=== PATIENT | female | born 1965 | race Two or more races ===

== ENCOUNTER 2024-11-03 11:25 | Outpatient (REF) | payer OTHER, SELFPAY ==
[2024-11-03 12:22] LABS: Basophils Percent Auto 0.2 % (0-2); Eosinophils Absolute Auto 0.1 X10*3/uL (0.0-0.4); Eosinophils Percent Auto 0.5 % (0-4); Imm Gran Abs Auto 0.19 X10*3/uL (0.00-0.03); Imm Gran Pct Auto 1.1 % (0.0-0.4); Lymphocytes Absolute Auto 5.8 X10*3/uL (1.2-4.9); MANUAL DIFF FLAG SCAN; Mean Corpuscular HGB Conc 32.5 g/dl (31.0-35.0); Mean Platelet Volume 9.1 fL (9.4-12.3); Monocytes Absolute Auto 0.8 X10*3/uL (0.1-1.2); Monocytes Percent Auto 4.7 % (2-11); Neutrophils Absolute Auto 10.1 x10*3/uL (2.0-8.3); Neutrophils Percent Auto 59.5 % (45-73); Platelet Count 327 X10*3/uL (160-400); Red Blood Count 4.82 X10*6/uL (4.20-5.50); Red Cell Distribution Width 15.7 % (11.0-16.0); SCAN SMEAR FLAG 1; White Blood Count 17.1 X10*3/uL (4.8-10.8)
[2024-11-03 12:31] LABS: Alanine Aminotransferase 53 U/L (0-31); Aspartate Amino Transferase 29 U/L (5-31); C Reactive Protein 1.72 mg/dL (< or = 0.50); Estimated Glomerular Filt Rate > 60; Rheumatoid Factor < 13.0 IU/mL (<15.0)
[2024-11-03 12:51] LABS: HBc Num1 0.06 S/CO (0.00-0.79); HBsAGNum1 0.42 S/CO (0.00-0.99); Hepatitis B Core Antibody Nonreactive (Nonreactive); Hepatitis B Surface Antigen Negative (Negative); ~HepC Num1 0.12 S/CO (0.00-0.79); ~Hepatitis B Surface Antibody NONREACTIVE (Nonreactive); ~Hepatitis C Antibody Nonreactive (Nonreactive)
[2024-11-03 12:55] LABS: SLIDE REVIEW VERIFIED
[2024-11-03 13:05] LABS: Erythrocyte Sedimentation Rate 14 MM/HR (0-20)
[2024-11-06 18:59] LABS: Antibody to SS-A Antigen <1.0 NEG AI (<1.0 NEG); Antibody to SS-B Antigen <1.0 NEG AI (<1.0 NEG); Complement C3 175 mg/dL (83-193)
[2024-11-08 16:09] LABS: TS Negative Control PASSED; TS Panel A 0; TS Panel B 0; TS Positive Control PASSED; TSpotTB NEGATIVE
== END 2024-11-03 11:26 | disposition home or self-care (01) ==
LOC: HO.LAB 11:25
PROVIDERS: Visit Provider Internal Medicine Rheumatology
DX: M35.00 Sjogren syndrome, unspecified (principal)
CPT/HCPCS: 36415; 82565; 84450; 84460; 85025; 85652; 86140; 86160; 86235; 86431; 86481; 86704; 86706; 86803; 87340

== ENCOUNTER 2024-12-28 13:32 | Outpatient (AMB) | payer OTHER, SELFPAY ==
[2024-12-28 13:37] VITALS: BP 120/66; PULSE 88; O2SAT 98; BMI 31.4
--- NOTE | 2024-12-28 13:37 | A.OFFVIS_ITS ---
Vital Signs 12/28/24 13:37 Height 5 ft 1 in Weight 166 lb BMI 31.4 BP 120/66 Blood Pressure Location Lt brachial Position Sitting Pulse 88 Pulse Source Pulse Oximeter Pulse Oximetry (%) 98 Oxygen Delivery Method Room Air Intake Visit Reasons: ss Intake Note: Patient presents for follow up on Sjogren's syndrome. She last saw Dr. Grove on 06/21/24 at the [facility]. Janitorial Supervisor Required: Yes Janitorial Supervisor Services: Janitorial Supervisor Present Janitorial Supervisor Name: maeve [id number] Allergies morphine Adverse Reaction (Mild, Verified 12/28/24 13:41) Hypotension HPI HPI ss: Details: She had two viral illness in Oct 2024. She takes Plaquenil 200mg qd. She had issues She continues to have knee pain and weakness in lower extremities MS 20 minutes. She continues to have pain in her hands. Review of Systems Const All systems reviewed & are unremarkable except as noted in HPI and below Physical Exam Vital Signs: Last Vital Signs Pulse 88 12/28/24 13:37 BP 120/66 12/28/24 13:37 Pulse Ox 98 12/28/24 13:37 Oxygen Delivery Method Room Air 12/28/24 13:37 BMI result Body Mass Index 31.4 Const Other: General: Comfortable CVS: RRR Respiratory: clear to auscultation bilaterally. Good respiratory effort Skin: No lesions seen MSK: Tender to palpate MCPs, PIPs, wrists, elbows, shoulders. Weak patient office rep strength bilateral. Shoulder abduction 120 degrees with limited full internal rotation and external rotation. Knee flexion is 90 degrees bilateral. Limited external rotation of bilateral hips. No synovitis present. 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 Biopsy-proven Sjogren's syndrome (minor salivary gland biopsy 01/2018) with elevated inflammatory markers, seronegative (MAUREEN, SSA/SSB, rheumatoid factor). Dry mouth improves with Biotene. Hydroxychloroquine started for inflammatory arthritis b ut it was discontinued after a few days due to worsening depression anxiety. She has tolerated Plaquenil 200 mg daily. Her polyarthralgias are uncontrolled. She also has weakness in her hands. She had labs done in 11/17/2024 which revealed elevated white cell count and mild elevation in ALT. She had a viral illness, requiring admission in October likely contributing to leukocytosis and transaminitis. She was discharged on higher dose of gabapentin, which has controlled her pain from fibromyalgia. Code(s): M35.00 - Sjogren syndrome, unspecified Category: Medical Qualifiers: Sjogren organ or system involvement: keratoconjunctivitis Qualified Code(s): M35.01 - Sjogren syndrome with keratoconjunctivitis Plan: Increase Plaquenil to 400 mg daily. Brand only. We will process PA. Labs for disease and drug monitoring reviewed from 11/17/2024 Occupational therapy ordered to increase hand strength Return to clinic in 3 months (2) Leukocytosis: Comment: likely in setting of viral illness in October 2024 Code(s): D72.829 - Elevated white blood cell count, unspecified Category: Medical Qualifiers: Leukocytosis type: unspecified Qualified Code(s): D72.829 - Elevated white blood cell count, unspecified Plan: Repeat CBC (3) Transaminitis: Comment: Possibly related to viral illness in 11/17/2024 Code(s): R74.01 - Elevation of levels of liver transaminase levels Category: Medical Plan: Repeat LFTs (4) Hand weakness: Code(s): R29.898 - Other symptoms and signs involving the musculoskeletal system Category: Medical Plan: OT ordered. Requisition given to patient as patient prefers to go to occupational therapy and [place]. (5) Knee pain, bilateral: Comment: Chronic with lower extremity weakness. She had x-rays done at the [facility]. Code(s): M25.561 - Pain in right knee; M25.562 - Pain in left knee Category: Medical Qualifiers: Chronicity: chronic Qualified Code(s): M25.561 - Pain in right knee; M25.562 - Pain in left knee; G89.29 - Other chronic pain Plan: Requesting bilateral knee x-ray reports from [facility] Patient agreed to start PT for lower extremity strengthening. She would like to go to PT locally in [place]. Requisition given to patient. (6) Fibromyalgia syndrome: Comment: Improve pain on higher dose of gabapentin, which was prescribed after she was discharged from hospitalization in 11/17/2024 Code(s): M79.7 - Fibromyalgia Category: Medical Plan: Continue gabapentin 800 mg 3 times a day Orders: Orders PT Evaluation and Treatment Today M25.561 - Pain in right knee, M25.562 - Pain in left knee OT Evaluation and Treatment Today R29.898 - Other symptoms and signs involving the musculoskeletal system Protein Electrophoresis, Serum Today M35.01 - Sjogren syndrome with keratoconjunctivitis Medications: New Plaquenil (hydroxychloroquine) Dispense brand only and 90 day supply 400 mg (2 x 200 mg) PO DAILY 180 tabs 3RF NS gabapentin Dispense 90 day supply 800 mg PO TID 90 days 270 tabs 3RF Coding Level of Care Code Est Pt Level 4 (05523) Complex EM visit Add On G2211 Diagnoses Sjogren's syndrome with keratoconjunctivitis sicca M35.01 Sjogren organ or system involvement: keratoconjunctivitis Leukocytosis, unspecified type D72.829 Leukocytosis type: unspecified Transaminitis R74.01 Hand weakness R29.898 Chronic pain of both knees M25.561; M25.562; G89.29 Chronicity: chronic Fibromyalgia syndrome M79.7
== END 2024-12-28 14:26 | disposition home or self-care (01) ==
PROVIDERS: PCP Nurse Practitioner Family; Visit Provider Internal Medicine Rheumatology
DX: M35.01 Sjogren syndrome with keratoconjunctivitis (principal); D72.829 Elevated white blood cell count, unspecified; R74.01 Elevation of levels of liver transaminase levels; R29.898 Other symptoms and signs involving the musculoskeletal system; M25.561 Pain in right knee; M25.562 Pain in left knee; G89.29 Other chronic pain; M79.7 Fibromyalgia
CPT/HCPCS: 99214; G2211

== ENCOUNTER 2024-12-28 13:32 | Outpatient (REF) | payer OTHER, SELFPAY ==
[2024-12-28 17:36] LABS: MANUAL DIFF FLAG NO
[2024-12-28 17:47] LABS: Basophils Percent Auto 0.4 % (0-2); Eosinophils Absolute Auto 0.2 X10*3/uL (0.0-0.4); Eosinophils Percent Auto 1.9 % (0-4); Hematocrit 39.8 % (37.0-47.0); Hemoglobin 12.7 g/dl (12.0-16.0); Imm Gran Abs Auto 0.03 X10*3/uL (0.00-0.03); Imm Gran Pct Auto 0.3 % (0.0-0.4); Lymphocytes Absolute Auto 2.8 X10*3/uL (1.2-4.9); Lymphocytes Percent Auto 31.7 % (20-40); Mean Corpuscular HGB Conc 31.9 g/dl (31.0-35.0); Mean Corpuscular Volume 84.5 fL (80.0-98.0); Mean Platelet Volume 9.5 fL (9.4-12.3); Monocytes Absolute Auto 0.6 X10*3/uL (0.1-1.2); Monocytes Percent Auto 6.8 % (2-11); Neutrophils Absolute Auto 5.2 x10*3/uL (2.0-8.3); Neutrophils Percent Auto 58.9 % (45-73); Platelet Count 296 X10*3/uL (160-400); Red Blood Count 4.71 X10*6/uL (4.20-5.50); Red Cell Distribution Width 15.2 % (11.0-16.0); White Blood Count 8.9 X10*3/uL (4.8-10.8)
[2024-12-28 17:57] LABS: Alanine Aminotransferase 51 U/L (0-31); Aspartate Amino Transferase 50 U/L (5-31)
--- OUTSIDE RECORDS SUMMARY | 2024-12-28 18:27 | XMS_ITS | Continuity of Care Document ---
Author Organization [facility] Address [address] [place] [id number]- Care Team Providers Care Psychiatric Arnp Name Role Phone [place] Greta BEAULIEU Primary Care Physician [phone] [place] [facility] [place]): [place]29/24 [facility] [address] [place] [id number] Encounter Type: Triage Allergies, Adverse Reactions, Alerts Substance Criticality Severity Reaction Reaction Severity Status morphine SOB - Shortness of breath Active Immunizations Given and Recorded Vaccine Date Status Refusal Reason pneumococcal 20-valent conjugate vaccine 1 10/11/24 Given influenza virus vaccine, inactivated 09/26/24 Give n influenza virus vaccine, inactivated 11/01/23 Give n influenza virus vaccine, inactivated 10/28/22 Give n influenza virus vaccine, inactivated 09/04/20 Cisco rded influenza virus vaccine, inactivated 09/14/19 Give n influenza virus vaccine, inactivated 09/21/18 Give n influenza virus vaccine, inactivated 11/01/17 Give n influenza virus vaccine, inactivated 09/09/16 Give n influenza virus vaccine, inactivated 2 09/11/15 Gi tash influenza virus vaccine, inactivated 3 10/08/14 Gi tash influenza virus vaccine, inactivated 08/09/13 Give n influenza virus vaccine, inactivated 4 08/12/12 Gi tash influenza virus vaccine, inactivated 5 10/16/11 Gi tash influenza virus vaccine, inactivated 6 08/27/10 Gi tash influenza virus vaccine, inactivated 7 08/21/09 Gi tash SARS-CoV-2 (COVID-19) mRNA BNT-162b2 vac 12/21/21 Recorded SARS-CoV-2 (COVID-19) mRNA BNT-162b2 vac 05/12/21 Recorded SARS-CoV-2 (COVID-19) mRNA BNT-162b2 vac 04/15/21 Recorded Hepatitis B Vaccine (old term) 8 08/13/10 Given Hepatitis B Vaccine (old term) 9 11/21/08 Given Hepatitis B Vaccine (old term) 10 11/21/08 Given influ virus vac, H1N1, inactive(oldterm) 11 10/23/09 Given Pneumococcal Poly (PPV23) (oldterm) 12 12/25/08 Gi tash Tet/Diphth/Acel, Pertussis (oldterm) 13 12/25/08 G iven Influenza Virus Vaccine (oldterm) 14 09/14/08 Give n 1Result Comment: MFD: CBA PHARMA 2Result Comment: [09/11/2015] VIS in Venezuelan given With blogs manager Ani 3Result Comment: [10/08/2014] fluarix trivalent 14-15 4Admin Note: VIS 7- 5Admin Note: CDC info given to patient 6Admin Note: vis given 07/08/10 7Admin Note: VIS GIVEN-DATED 06/21/08 8Admin Note: #3 in series 9Admin Note: #2 10Admin Note: No documentation patient states received first vaccine 10/05/08 11Admin Note: VIS GIVEN VIS DATE08/30/09 12Admin Note: VIS given 13Admin Note: VIS given 14Admin Note: VIS given Medications Aerochamber See Instructions, # 1 each, Maintenance, use with both inhalers, 09/09/20 10:12:00 AM EDT, Supply, 156, cm, 09/09/20 9:59:00 EDT, Height, 76.6, kg, 08/23/19 4:38:00 EDT, Dry Weight Start Date: 10/12/20 Status: Ordered Quantity: 1.0 Unit: each Repeat number: 1 albuterol 0.083% inhalation solution 3 mL = 2.5 mg, Inhalation, Every 6 hours, PRN for wheezing, # 30 each, 0 Refills, Maintenance, 11/15/24 8:30:00 AM EST, Solution, [facility], Partial fill upon patient request if the prescription is for a schedule II opioid drug., 155, cm, 11/15/24 7:26:00 EST, Height, 73, kg, 11/14/24 10:43:00 EST, Dry Weight Start Date: 11/15/24 Stop Date: 12/15/24 Status: Ordered Quantity: 30.0 Unit: each Repeat number: 1 albuterol CFC free 90 mcg/inh inhalation aerosol 2, puffs, Inhalation, 4 times a day, PRN, # 1 each, Refills 11, Tot. Refills 11, Maintenance, 10/12/24 2:10:00 PM EST, Aerosol, Route to Pharmacy Electronically, [id number],[facility]/pharm[facility] #[id number], 155, cm, 10/12/24 13:41:00 EST, Height, 79, kg, 09/20/24 19:29:00 EDT, Dry Weight Start Date: 10/12/24 Status: Ordered Quantity: 1.0 Unit: each Repeat number: 12 Alcohol Pads See Instructions, # 1 each, Refills 1, Tot. Refills 1, Maintenance, Box of alcohol wipes, Dx DM, oninsulin TID, 11/09/23 2:41:00 PM EST, Supply, 155, cm, 11/09/23 14:12:00 EST, Height, 74.4, kg, 11/01/23 4:38:00 EST, Dry Weight Start Date: 11/09/23 Status: Ordered Quantity: 1.0 Unit: each Repeat number: 2 Artificial Tears 1.4% 1 drops, Eyes, Both, 2 times a day, 0 Refills, Maintenance, 03/20/22 8:25:00 PM EDT, Partial fill upon patient request if the prescription is for a schedule II opioid drug. Start Date: 03/20/22 Status: Ordered Repeat number: 1 azelastine 137 mcg/inh (0.1%) nasal spray INHALE 2 SPRAYS EACH NOSTRIL TWICE DAILY Start Date: 05/15/23 Status: Ordered Repeat number: 1 budesonide 0.5 mg/2 mL inhalation suspension See Instructions, TAKE 2 ML BY NEBULIZATION DOS ARIANAELIZABETH AL KATE, # 360 mL, Refills 0, Maintenance, 09/22/24 9:32:00 AM EDT, Instructions Replace Required Details, Route to Pharmacy Electronically, [id number], [id number], 155, cm, 09/20/24 19:29:00 EDT, Height, 79, kg, 09/20/24 19:29:00 EDT, Dry Weight Start Date: 09/22/24 Status: Ordered Quantity: 360.0 Unit: mL Repeat number: 1 busPIRone 10 mg oral tablet 10 mg, 1, tablet, By Mouth, 2 times a day, Refills 0, Maintenance, 03/20/22 8:26:00 PM EDT, Partial fill upon patient request if the prescription is for a schedule II opioid drug. Start Date: 03/20/22 Status: Ordered Repeat number: 1 Calcium 600 +D oral tablet See Instructions, TAKE 1 TABLET BY MOUTH 2 TIMES A DAY FOR 90 DAYS WITH MEALS, # 180 tablet, 4 Refills, Maintenance, 01/24/24 5:18:00 PM EST, [facility]/pharmacy #[id number], 90, TAKE 1 TABLET BY MOUTH 2 TIMES A DAY FOR 90 DAYS WITH MEALS, 165, cm, 01/24/24 15:51:00 EST, Height, 73.3, kg, 01/23/24 18:29:00 EST, Dry Weight Start Date: 01/24/24 Status: Ordered Quantity: 180.0 Unit: tablet Repeat number: 5 capsaicin 0.025% topical cream 1 application, Topically, 2 times a day, # 60 Gm, 3 Refills, Maintenance, 08/10/24 11:46:00 AM EDT, Cream, [facility]/pharmacy #[id number], Partial fill upon patient request if the prescription is for a schedule II opioid drug., 1 application Topically 2 times a day, 155, cm, 08/10/24 11:10:00 EDT, Height, 82, kg, 07/31/24 23:23:00 EDT, Dry Weight Start Date: 08/10/24 Status: Ordered Quantity: 60.0 Unit: g Repeat number: 4 Indication: Spondylolysis, cervical region clonazePAM 0.5 mg oral tablet 1 tablet = 0.5 mg, By Mouth, Daily, PRN Anxiety, 0 Refills, Maintenance, 06/09/18 3:30:12 PM EDT, Tablet Start Date: 06/09/18 Status: Ordered Repeat number: 1 conjugated estrogens topical 0.625 mg/gm cream with applicator = 1 Gm, Vaginally, Daily before dinner, # 30 Gm, 5 Refills, Maintenance, 05/19/24 5:16:00 PM EDT, [facility]/pharm[facility] #[id number], Partial fill upon patient request if the prescription is for a schedule II opioid drug., 1 Gm Vaginally Daily before dinner, 157, cm, 05/16/24 16:05:00 EDT, Height, 77, kg, 03/25/24 19:43:00 EDT, Dry Weight Start Date: 05/19/24 Status: Ordered Quantity: 30.0 Unit: g Repeat number: 6 Indication: Other specified menopausal and perimenopausal disorders CPAP Equipment See Instructions, # 1 each, Refills 11, Tot. Refills 11, Maintenance, mask and supplies X 12 months; A4604 Heated Tubing/Climate line (1 X 3 mo) or A7037 Tubing (1 X 3 mo) ; A7038 (2 X mo) or A7039 (1 X 6 mo) Filters ; A7046 (1 X 6 mo) Humidifier Chamber ; A7035 Headgear ; A7027, A7030, A7031, A7032, A7033, A7034 Nasal, Full or Pillow Mask (X2/mo) and parts ; Heated Humidifier E0562 Dx G47.33 ; compliant with PAP use and continued use is required for medical benefit, 11/13/19 4:44:00 PM EST, Compound, 156, cm, 10/20/19 13:53:28 EST, Height, 76.6, kg, 08/23/19 4:38:11 EDT, Dry Weight Start Date: 11/13/19 Status: Ordered Quantity: 1.0 Unit: each Repeat number: 12 dicyclomine 10 mg oral capsule See Instructions, TOME 1 CAPSULA POR VIA ORAL CUATRO VECES AL KATE CUANDO SEA NECESARIO FOR STOMACH PAIN, # 40 capsule, 1 Refills, 10/11/24 2:16:00 PM EST, [id number], 155, cm, 10/11/24 13:44:00 EST, Height, 79, kg, 09/20/24 19:29:00 EDT, Dry Weight Start Date: 10/11/24 Status: Ordered Quantity: 40.0 Unit: capsule Repeat number: 2 Freestyle Lite Lancets See Instructions, # 100 each, Refills 11, Tot. Refills 11, Maintenance, used to check BS TID, on insulin Dx: E11.9, 03/07/24 1:22:00 PM EDT, Compound, 159, cm, 03/03/24 8:08:00 EDT, Height, 75, kg, 03/03/24 8:08:00 EDT, Dry Weight Start Date: 03/07/24 Stop Date: 03/02/25 Status: Ordered Quantity: 100.0 Unit: each Repeat number: 12 Freestyle Lite Monitor See Instructions, # 1 each, Refills 0, Tot. Refills 0, Maintenance, use to test bs QD, dx Diabetes E11.9, 11/13/21 10:39:00 AM EST, Compound, 155, cm, 11/12/21 14:02:00 EST, Height, 77.6, kg, 11/12/21 14:02:00 EST, Dry Weight Start Date: 11/13/21 Status: Ordered Quantity: 1.0 Unit: each Repeat number: 1 FREESTYLE LITE TEST STRIP FREESTYLE LITE TEST STRIP, See Instructions, # 50 Unknown, 11 Refills, Maintenance, USE TO CHECK BLOOD SUGAR EVERY DAY, 02/01/23 11:40:00 AM EST, 155, cm, 01/28/23 10:01:00 EST, Height, 76, kg, 04/28/22 20:47:00 EDT, Dry Weight Start Date: 02/01/23 Status: Ordered Quantity: 50.0 Unit: Unknown Repeat number: 1 Freestyle Lite Test Strips See Instructions, # 100 each, Refills 11, Tot. Refills 11, Maintenance, used to check BS TID, on insulin Dx: E11.9, 03/07/24 1:21:00 PM EDT, Compound, 159, cm, 03/03/24 8:08:00 EDT, Height, 75, kg, 03/03/24 8:08:00 EDT, Dry Weight Start Date: 03/07/24 Stop Date: 03/02/25 Status: Ordered Quantity: 100.0 Unit: each Repeat number: 12 gabapentin 800 mg oral tablet 1 tablet = 800 mg, By Mouth, 3 times a day, # 270 tablet, 3 Refills, Maintenance, 08/10/24 11:44:00 AM EDT, Tablet, [facility] #[id number], Partial fill upon patient request if the prescription is for a schedule II opioid drug., 155, cm, 08/10/24 11:10:00 EDT, Height, 82, kg, 07/31/24 23:23:00 EDT, Dry Weight Start Date: 08/10/24 Stop Date: 08/05/25 Status: Ordered Quantity: 270.0 Unit: tablet Repeat number: 4 GaviLAX oral powder for reconstitution See Instructions, DISOLVER 17 GRAMOS EN AGUA, LUEGO ETELVINA POR VIA ORAL TODOS [place] LEE CUANDO SEA NECESARIO PARA LA CONSTIPATION, # 238 Gm, 11 Refills, Maintenance, 10/11/24 2:18:00 PM EST, [facility] #[id number], 30, DISOLVER 17 GRAMOS EN AGUA, LUEGO ETELVINA POR VIA ORAL TODOS [place] L[place] CUANDO SEA NECESARIO PARA LA CONSTIPATION, 155, cm, 10/11/24 13:44:00 EST, Height, 79, kg, 09/20/24 19:29:00 EDT, Dry Weight Start Date: 10/11/24 Status: Ordered Quantity: 238.0 Unit: g Repeat number: 12 hydrOXYzine hydrochloride 25 mg oral tablet See Instructions, PRN Itching, Take 1 (25mg) to 2 (50mg) tablets by mouth daily at bedtime as needed, 0 Refills, Maintenance, 03/20/22 8:27:00 PM EDT, Partial fill upon patient request if the prescription is for a schedule II opioid drug. Start Date: 03/20/22 Status: Ordered Repeat number: 1 Incontinence Pads Incontinence Pads, See Instructions, # 60 each, Refills 11, Tot. Refills 11, Maintenance, Up to day Use as needed for incontinence Dx: N39.46 Duration: Lifetime, 05/30/24 11:15:00 AM EDT, Supply Start Date: 05/30/24 Status: Ordered Quantity: 60.0 Unit: each Repeat number: 12 incontinence pantyliners incontinence pantyliners, See Instructions, # 150 each, Refills 11, Tot. Refills 11, Maintenance, dx urinary incontinence ICD R39.81 QID use, 11/18/21 11:55:00 AM EST, Supply Start Date: 11/18/21 Status: Ordered Quantity: 150.0 Unit: each Repeat number: 12 Lantus Solostar Pen 100 units/mL subcutaneous solution = 20 units, Subcutaneous Injection, Daily at bedtime, # 10 mL, 6 Refills, Maintenance, 11/27/24 3:50:00 PM EST, Solution, [id number], Partial fill upon patient request if the prescription is for a schedule II opioid drug., 155, cm, 11/27/24 14:27:00 EST, Height, 73, kg, 11/14/24 10:43:00 EST, Dry Weight Start Date: 11/27/24 Status: Ordered Quantity: 10.0 Unit: mL Repeat number: 7 Lantus Solostar Pen 100 units/mL subcutaneous solution = 20 units, Subcutaneous Injection, Daily at bedtime, Please provide whatever equivalent covered byinsurance., # 10 mL, 0 Refills, Maintenance, 01/28/24 11:49:00 AM EST, Solution, [id number], Partial fill upon patient request if the prescription is for a schedule II opioid drug., 165, cm, 01/28/24 7:58:00 EST, Height, 73.3, kg, 01/23/24 18:29:00 EST, Dry Weight Start Date: 01/28/24 Status: Ordered Quantity: 10.0 Unit: mL Repeat number: 1 levocetirizine 5 mg oral tablet 1 tablet = 5 mg, By Mouth, Daily, 0 Refills, Maintenance, 03/20/22 8:26:00 PM EDT, Partial fill uponpatient request if the prescription is for a schedule II opioid drug. Start Date: 03/20/22 Status: Ordered Repeat number: 1 Lidoderm 5% film 2 patch, Topically, Daily, remove patches after 12 hours, prn back pain, Venezuelan, # 60 patch, 5 Refills, Maintenance, 10/11/24 2:20:00 PM EST, Film, [id number], Partial fill upon patient request if the prescription is for a schedule II opioid drug., 2 patch Topically Daily,x30 days,Instr:remove patches after 12 hours, prn back pain, Venezuelan, 155, cm, 10/11/24 13:44:00 EST, Height, 79, kg,09/20/24 19:29:00 EDT, Dry Weight Start Date: 10/11/24 Stop Date: 04/09/25 Status: Ordered Quantity: 60.0 Unit: patch Repeat number: 6 linaclotide 145 mcg oral capsule 1 capsule = 145 mcg, By Mouth, Daily, # 30 capsule, 2 Refills, Maintenance, 09/28/24 8:22:00 AM EDT, Capsule, [id number], Partial fill upon patient request if the prescription is for a schedule II opioid drug., 155, cm, 09/26/24 9:53:00 EDT, Height, 79, kg, 09/20/24 19:29:00 EDT, Dry Weight Start Date: 09/28/24 Status: Ordered Quantity: 30.0 Unit: capsule Repeat number: 3 meclizine 12.5 mg oral tablet 1 tablet = 12.5 mg, By Mouth, 3 times a day, PRN for dizziness, # 60 tablet, 1 Refills, Maintenance, 09/26/24 10:31:00 AM EDT, Tablet, [id number], Partial fill upon patient request if the prescription is for a schedule II opioid drug., 155, cm, 09/26/24 9:53:00 EDT, Height, 79, kg, 09/20/2419:29:00 EDT, Dry Weight Start Date: 09/26/24 Status: Ordered Quantity: 60.0 Unit: tablet Repeat number: 2 melatonin 10 mg oral tablet 1 tablet = 10 mg, By Mouth, Daily at bedtime, 0 Refills, Maintenance, 03/20/22 8:26:00 PM EDT, Partial fill upon patient request if the prescription is for a schedule II opioid drug. Start Date: 03/20/22 Status: Ordered Repeat number: 1 MELATONIN TR 10 MG TABLET MELATONIN TR 10 MG TABLET, PLEASE SEE ATTACHED FOR DETAILED DIRECTIONS Start Date: 05/15/23 Status: Ordered Repeat number: 1 metFORMIN 1000 mg oral tablet 1 tablet = 1,000 mg, By Mouth, 2 times a day, with meals, montenegrin label, # 180 tablet, 3 Refills, Maintenance, 10/11/24 2:18:00 PM EST, Tablet, [id number], 155, cm, 10/11/24 13:44:00 EST, Height, 79, kg, 09/20/24 19:29:00 EDT, Dry Weight Start Date: 10/11/24 Stop Date: 10/06/25 Status: Ordered Quantity: 180.0 Unit: tablet Repeat number: 4 metoprolol 25 mg oral tablet, extended release 25 mg, 1, tablet, By Mouth, Daily, # 90 tablet, Refills 3, Tot. Refills 3, Maintenance, 11/27/24 3:44:00 PM EST, Route to Pharmacy Electronically, [id number], Partial fill upon patient request if the prescription is for a schedule II opioid drug., 155, cm, 11/27/24 14:27:00 EST, Height, 73,kg, 11/14/24 10:43:00 EST, Dry Weight Start Date: 11/27/24 Status: Ordered Quantity: 90.0 Unit: tablet Repeat number: 4 Myrbetriq 25 mg oral tablet, extended release See Instructions, TOME VERA TABLETA TODOS [place] L[place], # 30 tablet, 2 Refills, Maintenance, 05/19/24 3:58:00 PM EDT, [facility], 157, cm, 05/16/24 16:05:00 EDT, Height, 77, kg, 03/25/24 19:43:00 EDT, Dry Weight Start Date: 05/19/24 Status: Ordered Quantity: 30.0 Unit: tablet Repeat number: 3 nabumetone 500 mg oral tablet See Instructions, TOME VERA TABLETA POR VIA ORAL DOS VECES AL KATE CON ALIMENTO CUANDO SEA NECESARIO PARA EL DOLOR, # 60 tablet, 1 Refills, Maintenance, 10/11/24 2:16:00 PM EST, [id number], 155, cm, 10/11/24 13:44:00 EST, Height, 79, kg, 09/20/24 19:29:00 EDT, Dry Weight Start Date: 10/11/24 Status: Ordered Quantity: 60.0 Unit: tablet Repeat number: 2 nebulizer supplies nebulizer supplies, See Instructions, # 1 each, Refills 11, Tot. Refills 11, Maintenance, A7003 NEBDISP SET A7014 NEB NON-DISP FILTER A7005 NEB NON-DISP SET A7015 AEROSOL MASK A7013 NEB DISP FILTER LENGTH OF TIME NEED LIFETIME: 99 MONTHS FOR HOME USE dx. ASTHMA J45.909, 04/24/21 5:11:00 PM EDT, Supply Start Date: 04/24/21 Status: Ordered Quantity: 1.0 Unit: each Repeat number: 12 NovoLOG FlexPen 100 units/mL subcutaneous solution = 2 units, Subcutaneous Injection, 3 times a day before meals, instructions in montenegrin 2 units for sugar 150- 199 5 units for sugar 200 - 249 8 units for sugar 250 - 299 11 units for sugar 300 - 349 14 units for sugar 350 - 399, # 15 mL, 6 Refills, Maintenance, 11/27/24 3:50:00 PM EST, Solution, [id number], Partial fill upon patient request if the prescription is for a schedule II opioid drug., 155, cm, 11/27/24 14:27:00 EST, Height, 73, kg, 11/14/24 10:43:00 EST, Dry Weight Start Date: 11/27/24 Status: Ordered Quantity: 15.0 Unit: mL Repeat number: 7 NovoLOG PenFill 100 units/mL injectable solution See Instructions, Subcutaneous Infusion 3 times a day before meals, sliding scale BS 150-200 2 units BS 201-250 4 units BS 251-300 6 units BS 301-350 8 units BS over 350 10 units, # 15 mL, 1 Refills,Maintenance, 11/21/24 9:12:00 AM EST, [id number], Partial fill upon patient request if the prescription is for a schedule II opioid drug., 155, cm, 11/15/24 7:26:00 EST, Height, 73, kg, 11/14/24 10:43:00 EST, Dry Weight Start Date: 11/21/24 Status: Ordered Quantity: 15.0 Unit: mL Repeat number: 2 omeprazole 20 mg oral enteric coated capsule 1 capsule, By Mouth, 2 times a day, INSTR:30 MIN BEFORE A MEAL, # 180 capsule, 3 Refills, Maintenance, 11/21/24 8:20:00 AM EST, [id number], 155, cm, 11/15/24 7:26:00 EST, Height, 73, kg, 11/14/24 10:43:00 EST, Dry Weight Start Date: 11/21/24 Status: Ordered Quantity: 180.0 Unit: capsule Repeat number: 1 ondansetron 4 mg oral tablet 1 tablet = 4 mg, By Mouth, Every 8 hours, # 12 tablet, 0 Refills, Maintenance, 03/07/24 1:20:00 PM EDT, Tablet, [id number], Partial fill upon patient request if the prescription is for a schedule II opioid drug., 159, cm, 03/03/24 8:08:00 EDT, Height, 75, kg, 03/03/24 8:08:00 EDT, Dry Weight Start Date: 03/07/24 Status: Ordered Quantity: 12.0 Unit: tablet Repeat number: 1 Pen [place], 31 G x 5 mm BD Ultra Fine III See Instructions, # 90 each, Refills 1, Tot. Refills 1, Maintenance, DX DM, TID insulin use, 11/21/24 9:09:00 AM EST, Supply, 155, cm, 11/15/24 7:26:00 EST, Height, 73, kg, 11/14/24 10:43:00 EST, DryWeight Start Date: 11/21/24 Status: Ordered Quantity: 90.0 Unit: each Repeat number: 2 Plaquenil = 200 mg, By Mouth, Daily, 0 Refills, Maintenance, 03/22/24 8:49:00 AM EDT, Partial fill upon patient request if the prescription is for a schedule II opioid drug. Start Date: 03/22/24 Status: Ordered Repeat number: 1 Reusable bedpads Reusable bedpads, See Instructions, # 2 each, Refills 2, Tot. Refills 2, Maintenance, Use as neededfor incontinence Dx: N39.46 Duration: Lifetime, 11/10/23 3:35:00 PM EST, Supply Start Date: 11/10/23 Status: Ordered Quantity: 2.0 Unit: each Repeat number: 3 Senexon-S 50 mg-8.6 mg oral tablet See Instructions, TOME DOS TABLETAS POR VIA ORAL AL ACOSTARSE CUANDO SEA NECESARIO PARA LA CONSTIPACION, # 60 tablet, 5 Refills, Maintenance, 10/11/24 2:16:00 PM EST, [facility], 30, TOME DOSTABLETAS POR VIA ORAL AL ACOSTARSE CUANDO SEA NECESARIO PARA LA CONSTIPACION, 155, cm, 10/11/24 13:44:00 EST, Height, 79, kg, 09/20/24 19:29:00 EDT, Dry Weight Start Date: 10/11/24 Status: Ordered Quantity: 60.0 Unit: tablet Repeat number: 6 simvastatin 20 mg oral tablet 20 mg, 1, tablet, By Mouth, Daily at bedtime, for cholesterol, Venezuelan label, # 90 tablet, Refills 4, Tot. Refills 4, Maintenance, 10/11/24 2:19:00 PM EST, Route to Pharmacy Electronically, [id number], 155, cm, 10/11/24 13:44:00 EST, Height, 79, kg, 09/20/24 19:29:00 EDT, Dry Weight Start Date: 10/11/24 Stop Date: 01/04/26 Status: Ordered Quantity: 90.0 Unit: tablet Repeat number: 5 Singulair 10 mg oral tablet 10 mg, 1, tablet, By Mouth, Daily at bedtime, Refills 0, Maintenance, 03/20/22 8:21:00 PM EDT, Partial fill upon patient request if the prescription is for a schedule II opioid drug. Start Date: 03/20/22 Status: Ordered Repeat number: 1 sitaGLIPtin 100 mg oral tablet = 100 mg, By Mouth, Daily, please label in montenegrin, # 90 each, 4 Refills, Maintenance, 10/11/24 2:17:00 PM EST, Tablet, [facility], 155, cm, 10/11/24 13:44:00 EST, Height, 79, kg, 09/20/24 19:29:00 EDT, Dry Weight Start Date: 10/11/24 Stop Date: 01/04/26 Status: Ordered Quantity: 90.0 Unit: each Repeat number: 5 Indication: Constipation, unspecified Symbicort 160mcg/4.5mcg Inhaler See Instructions, INHALE 2 PUFFS 2 TIMES A DAY, USE WITH SPACE CHAMBER. RINSE MOUTH AND THROAT AFTER USE, J44.9, # 10.2 each, Refills 4, Maintenance, 10/23/24 8:52:00 AM EST, Instructions Replace Required Details, Route to Pharmacy Electronically, [id number], [id number], 155, cm, 10/12/24 13:41:00 EST, Height, 79, kg, 09/20/24 19:29:00 EDT, Dry Weight Start Date: 10/23/24 Status: Ordered Quantity: 10.2 Unit: each Repeat number: 1 Tylenol Extra Strength 500 mg oral tablet 2 tablet = 1,000 mg, By Mouth, 4 times a day, PRN as needed for pain, # 100 tablet, 0 Refills, Maintenance, 01/12/23 8:36:00 AM EST, Tablet, [id number], Partial fill upon patient request if the prescription is for a schedule II opioid drug., 155, cm, 01/07/23 13:57:00 EST, Height, 76, kg, 04/28/22 20:47:00 EDT, Dry Weight Start Date: 01/12/23 Status: Ordered Quantity: 100.0 Unit: tablet Repeat number: 1 venlafaxine 37.5 mg oral capsule, extended release TOME VERA Bob [place] TODOS LOS D EN LA MA MAUREEN Start Date: 07/16/22 Status: Ordered Repeat number: 1 zolpidem 10 mg oral tablet 30 each, 0 Refill(s), TAKE 1 TABLET BY MOUTH AT BEDTIME FOR RESTFUL REJUVENATING PEACEFUL SLEEP, 0 Refills, 07/18/24 3:38:00 PM EDT, Partial fill upon patient request if the prescription is for a schedule II opioid drug. Start Date: 07/18/24 Status: Ordered Repeat number: 1 Problem List Condition Confirmation Course Effective Dates Status H ealth Status Informant Anxiety disorder Confirmed Active Asthma Confirmed Active Vaginal atrophy Confirmed Active Chronic abdominal pain 1 Confirmed Active COVID-19 2 Confirmed 05/05/22 Active Depression Confirmed Active DM (diabetes mellitus) Confirmed Active Diverticulosis Confirmed Active Dyslipidemia Confirmed Active Dyspnea on effort Confirmed Active External hemorrhoids Confirmed Active Fatigue Confirmed Active Fibromyalgia Confirmed Active H/O: migraine Confirmed Active Insomnia, Unspecified Confirmed Active IBS (irritable bowel syndrome) Confirmed Active Normocytic anemia Confirmed Active Obese class I Confirmed Active YANICK - Obstructive sleep apnea Confirmed Active Osteoarthritis Confirmed Active Palpitations 3 Confirmed Active *[facility] Sander-Shazia Henry-[phone]/Health retirement, active care coordination Confirmed Active Polyarthritis Confirmed Active Sjogren's syndrome Confirmed Active Hepatic steatosis Confirmed Active 1Has had 7 CT of abdomen and pelvic 2018- 2023 for abominal pain 2Problem added by Discern Expert 3work-up and cardiology consult on 30 d loop recorder Social History Social History Type Response Smoking Status Never (less than 100 in lifetime) entered on: 07/31/24 Sex Female Sex Representation Female (finding) Patient Care team information Care Team Personnel Name: Fauzia Lynne RN Position: [facility] Nurse Member Role: Primary Care Nurse Name: Margot Turner RN Position: [facility] RN Member Role: Primary Care Nurse Name: More Marie RN Position: [facility] RN Member Role: Primary Care Nurse Name: Rony Jackson RN Position: [facility] RN Member Role: Primary Care Nurse Name: Selena Walker RN Position: [facility] RN Member Role: Primary Care Nurse Name: Gloria Tello RN Position: [facility] RN Member Role: Primary Care Nurse Name: Alice Maloney RN Position: [facility] SN RN Member Role: Primary Care Nurse Name: Josefina Tolliver RN Position: [facility] RN Member Role: Primary Care Nurse Name: Kerry Fonseca RN Position: [facility] RN Member Role: Primary Care Nurse Name: Greta Gomez NP Position: [facility] PCO Associate Professional Member Role: PCP Address: [address] [place] [address] Telecom: Name: Niki Kelly RN Position: [facility] RN Member Role: Primary Care Nurse Name: Felipe Wylie RN Position: [facility] RN Member Role: Primary Care Nurse Name: Laya Chandra RN Position: [facility] RN Member Role: Primary Care Nurse Name: Myrna Boyd RN Position: [facility] SN Billing Department Supervisor Member Role: Primary Care Nurse Name: Jace Beard RN Position: [facility] RN Member Role: Primary Care Nurse Name: Gabbi Contreras RN Position: [facility] ED RN W/OE and Tasks Member Role: Primary Care Nurse Name: Elsie Maria RN Position: [facility] RN Member Role: Primary Care Nurse Name: Jace Cosme RN Position: [facility] RN Member Role: Primary Care Nurse Name: Lynne Fabian RN Position: [facility] RN Member Role: Primary Care Nurse Name: Desiree Olivares RN Position: [facility] RN Member Role: Primary Care Nurse Care Team Related Persons Name: NINA CADE Name: WIL DALY Name: KELLI DALY Insurance Providers Guarantor name: CHAVEZ [facility] Information #: 1 Payer: [facility] CARE ALLIANCE/ONE CARE Member Number: NA Policy Number: NA Group Number: NA
--- OUTSIDE RECORDS SUMMARY | 2024-12-28 18:27 | XMS_ITS | Continuity of Care Document ---
Author Organization [facility] Address [address] [place] [address]- Care Team Providers Care Supplier Quality Engineering Manager Name Role Phone [place] Greta BEAULIEU Primary Care Physician [place] [facility] [place] 11/06[place]24 - 12/06/24 [facility] [address] [place], [place] [phone] Encounter Type: Triage Allergies, Adverse Reactions, Alerts [...] 14 09/14/08 Give n 1Result Comment: MFD: [employer] 2Result Comment: [09/11/2015] VIS in Canadian given With cash van salesperson Ani 3Result Comment: [10/08/2014] fluarix trivalent 14-15 [...] 08/23/19 4:38:00 EDT, Dry Weight Start Date: 09/09/20 Status: Ordered Quantity: 1.0 Unit: each Repeat number: 1 albuterol 0.083% inhalation solution 3 mL = 2.5 mg, Inhalation, Every 6 hours, PRN for wheezing, # 30 each, 0 Refills, Maintenance, 11/15/24 8:30:00 AM EST, Solution, [facility], Partial fill upon patient [...] PM EST, Aerosol, Route to Pharmacy Electronically, [id number],[facility]/pharmacy #[id number], 155, cm, 10/12/24 13:41:00 EST, Height, [...] Instructions, TAKE 2 ML BY NEBULIZATION DOS VECES AL KATE, # 360 mL, Refills 0, Maintenance, 09/22/24 9:32:00 AM EDT, Instructions Replace Required Details, Route to Pharmacy Electronically, [id number], [facility] STORE [id number], 155, cm, 09/20/24 19:29:00 EDT, Height, 79, [...] 4 Refills, Maintenance, 01/24/24 5:18:00 PM EST, [facility]/pharmacy #[id number], 90, TAKE 1 TABLET BY MOUTH 2 TIMES A DAY FOR 90 DAYS WITH MEALS, 165, cm, 01/24/24 15:51:00 EST, Height, 73.3, kg, 01/23/24 18:29:00 EST, Dry Weight Start Date: 01/24/24 Status: Ordered Quantity: 180.0 Unit: tablet Repeat number: 5 capsaicin 0.025% topical cream 1 application, Topically, 2 times a day, # 60 Gm, 3 Refills, Maintenance, 08/10/24 11:46:00 AM EDT, Cream, [facility]/pharmacy #[id number], Partial fill upon patient request if [...] 5 Refills, Maintenance, 05/19/24 5:16:00 PM EDT, [facility]/pharmacy #[id number], Partial fill upon patient request if the prescription is for a schedule II opioid drug., 1 Gm Vaginally Daily before dinner, 157, cm, 05/16/24 16:05:00 EDT, Height, 77, kg, 03/25/24 19:43:00 EDT, Dry Weight Start Date: 05/19/24 Status: Ordered Quantity: 30.0 Unit: g Repeat number: 6 Indication: Other specified menopausal and perimenopausal disorders CPAP Machine See Instructions, # 1 each, Maintenance, E0601 AutoCPAP to cm H20 with compliance data A4604 HeatedTubing/Climate line or A7037 Tubing A7038 or A7039 Filters A7036 Chin strap A7046 Humidifier Chamber A7035 Headgear A7027, A7030, A7031, A7032, A7033, A7034 Nasal, Full or Pillow Mask and parts [id number] Humidifier length of need Lifetime 99 months For home use, 12/04/24 12:41:00 PM EST, Supply Start Date: 12/04/24 Status: Ordered Quantity: 1.0 Unit: each Repeat number: 1 CPAP Equipment See Instructions, # 1 each, [...] Refills, Maintenance, 08/10/24 11:44:00 AM EDT, Tablet, [id number], Partial fill upon patient request [...] 11 Refills, Maintenance, 10/11/24 2:18:00 PM EST, [id number], 30, DISOLVER 17 GRAMOS EN AGUA, [...] 11, Tot. Refills 11, Maintenance, Up to 2/day Use as needed for incontinence Dx: N39.46 [...] patches after 12 hours, prn back pain, Canadian, # 60 patch, 5 Refills, Maintenance, 10/11/24 2:20:00 PM EST, Film, [id number], Partial fill upon patient request if the prescription is for a schedule II opioid drug., 2 patch Topically Daily,x30 days,Instr:remove patches after 12 hours, prn back pain, Canadian, 155, cm, 10/11/24 13:44:00 EST, Height, 79, [...] Refills, Maintenance, 09/26/24 10:31:00 AM EDT, Tablet, [id number], Partial fill upon patient request [...] Mouth, 2 times a day, with meals, yoruba label, # 180 tablet, 3 Refills, Maintenance, 10/11/24 2:18:00 PM EST, Tablet, [facility]/pharmacy #0488, 155, cm, 10/11/24 13:44:00 EST, Height, 79, kg, 09/20/24 19:29:00 EDT, Dry Weight Start Date: 10/11/24 Stop Date: 10/06/25 Status: Ordered Quantity: 180.0 Unit: tablet Repeat number: 4 metoprolol 25 mg oral tablet, extended release 25 mg, 1, tablet, By Mouth, Daily, # 90 tablet, Refills 3, Tot. Refills 3, Maintenance, 11/27/24 3:44:00 PM EST, Route to Pharmacy Electronically, [facility]/pharmacy #[id number], Partial fill upon patient request if the prescription is for a schedule II opioid drug., 155, cm, 11/27/24 14:27:00 EST, Height, 73,kg, 11/14/24 10:43:00 EST, Dry Weight Start Date: 11/27/24 Status: Ordered Quantity: 90.0 Unit: tablet Repeat number: 4 Myrbetriq 25 mg oral tablet, extended release See Instructions, CHARLY ARRAIGA TODOS LOS LEE, # 30 tablet, 2 Refills, Maintenance, 05/19/24 3:58:00 PM EDT, [facility]/pharmacy #0488, 157, cm, 05/16/24 16:05:00 EDT, Height, 77, kg, 03/25/24 19:43:00 EDT, Dry Weight Start Date: 05/19/24 Status: Ordered Quantity: 30.0 Unit: tablet Repeat number: 3 nabumetone 500 mg oral tablet See Instructions, TOME VERA TABLETA POR VIA ORAL DOS VECES AL KATE CON ALIMENTO CUANDO SEA NECESARIO PARA EL DOLOR, # 60 tablet, 1 Refills, Maintenance, 10/11/24 2:16:00 PM EST, [facility]/pharmacy #0488, 155, cm, 10/11/24 13:44:00 EST, Height, [...] times a day before meals, instructions in yoruba 2 units for sugar 150- 199 5 units for sugar 200 - 249 8 units for sugar 250 - 299 11 units for sugar 300 - 349 14 units for sugar 350 - 399, # 15 mL, 6 Refills, Maintenance, 11/27/24 3:50:00 PM EST, Solution, [facility]/pharmacy #[id number], Partial fill upon patient request if [...] mL, 1 Refills,Maintenance, 11/21/24 9:12:00 AM EST, [facility]/pharmacy #0488, Partial fill upon patient request if [...] 3 Refills, Maintenance, 11/21/24 8:20:00 AM EST, [id number], 155, cm, 11/15/24 7:26:00 EST, Height, 73, kg, 11/14/24 10:43:00 EST, Dry Weight Start Date: 11/21/24 Status: Ordered Quantity: 180.0 Unit: capsule Repeat number: 1 ondansetron 4 mg oral tablet 1 tablet = 4 mg, By Mouth, Every 8 hours, # 12 tablet, 0 Refills, Maintenance, 03/07/24 1:20:00 PM EDT, Tablet, [facility]/pharmacy #[id number], Partial fill upon patient request if the prescription is for a schedule II opioid drug., 159, cm, 03/03/24 8:08:00 EDT, Height, 75, kg, 03/03/24 8:08:00 EDT, Dry Weight Start Date: 03/07/24 Status: Ordered Quantity: 12.0 Unit: tablet Repeat number: 1 Pen Niotaze, 31 G x 5 mm BD Ultra [...] 5 Refills, Maintenance, 10/11/24 2:16:00 PM EST, [facility]/pharmacy #0488, 30, TOME DOSTABLETAS POR VIA ORAL AL ACOSTARSE CUANDO SEA NECESARIO PARA LA CONSTIPACION, 155, cm, 10/11/24 13:44:00 EST, Height, 79, kg, 09/20/24 19:29:00 EDT, Dry Weight Start Date: 10/11/24 Status: Ordered Quantity: 60.0 Unit: tablet Repeat number: 6 simvastatin 20 mg oral tablet 20 mg, 1, tablet, By Mouth, Daily at bedtime, for cholesterol, Canadian label, # 90 tablet, Refills 4, Tot. Refills 4, Maintenance, 10/11/24 2:19:00 PM EST, Route to Pharmacy Electronically, [facility]/pharmacy #[id number], 155, cm, 10/11/24 13:44:00 EST, Height, [...] mg, By Mouth, Daily, please label in yoruba, # 90 each, 4 Refills, Maintenance, 10/11/24 2:17:00 PM EST, Tablet, [facility]/pharmacy #0488, 155, cm, 10/11/24 13:44:00 EST, Height, [...] Replace Required Details, Route to Pharmacy Electronically, [id number], [facility] STORE [id number], 155, cm, 10/12/24 13:41:00 EST, Height, 79, kg, 09/20/24 19:29:00 EDT, Dry Weight Start Date: 10/23/24 Status: Ordered Quantity: 10.2 Unit: each Repeat number: 1 Tylenol Extra Strength 500 mg oral tablet 2 tablet = 1,000 mg, By Mouth, 4 times a day, PRN as needed for pain, # 100 tablet, 0 Refills, Maintenance, 01/12/23 8:36:00 AM EST, Tablet, [facility]/pharmacy #[id number], Partial fill upon patient request if the prescription is for a schedule II opioid drug., 155, cm, 01/07/23 13:57:00 EST, Height, 76, kg, 04/28/22 20:47:00 EDT, Dry Weight Start Date: 01/12/23 Status: Ordered Quantity: 100.0 Unit: tablet Repeat number: 1 venlafaxine 37.5 mg oral capsule, extended release TOME VERA C PSULA TODOS LOS D EN LA CHRISTINE REDDY Start Date: 07/16/22 Status: Ordered Repeat number: [...] Osteoarthritis Confirmed Active Palpitations 3 Confirmed Active *[facility] Care/Landfill Gas Collection System Operator-Shazia Henry-[phone]/Health [facility], active care coordination Confirmed Active Polyarthritis Confirmed Active Sjogren's syndrome Confirmed Active Hepatic steatosis Confirmed Active 1Has had 7 CT of abdomen and pelvic 2018- 2023 for abominal pain 2Problem added by Discern Expert 3work-up and cardiology consult on d loop recorder Social History Social History Type Response Smoking Status Never (less than 100 in lifetime) entered on: 07/31/24 Sex Female Sex Representation Female (finding) Patient Care team information Care Team Personnel Name: Fauzia Lynne RN Position: [facility] AMB Nurse Member Role: Primary Care Nurse Name: Margot Turner RN Position: [facility] RN Member Role: Primary Care Nurse Name: More Marie RN Position: [facility] RN Member Role: Primary Care Nurse Name: Rony Jackson RN Position: [facility] RN Member Role: Primary Care Nurse Name: Selena Walker RN Position: [facility] RN Member Role: Primary Care Nurse Name: Gloria Tello RN Position: [facility] RN Member Role: Primary Care Nurse Name: Alice Maloney RN Position: [facility] SN RN Member Role: Primary Care Nurse Name: Joseifna Tolliver RN Position: [facility] RN Member Role: Primary Care Nurse Name: Kerry Fonseca RN Position: [facility] RN Member Role: Primary Care Nurse Name: Greta Gomez NP Position: [facility] PCO Associate Professional Member Role: PCP Address: [address] [place] [address] Telecom: Name: Niki Kelly RN Position: [facility] RN Member Role: Primary Care Nurse Name: Felipe Wylie RN Position: [facility] RN Member Role: Primary Care Nurse Name: Laya Chandra RN Position: [facility] RN Member Role: Primary Care Nurse Name: Myrna Boyd RN Position: [facility] SN Pipe Bowls Paint Trimmer Member Role: Primary Care Nurse Name: Jace Beard RN Position: [facility] RN Member Role: Primary Care Nurse Name: Gabbi Contreras RN Position: [facility] ED RN W/OE and Tasks Member Role: Primary Care Nurse Name: Elsie Maria RN Position: [facility] RN Member Role: Primary Care Nurse Name: Jace Cosme RN Position: [facility] RN Member Role: Primary Care Nurse Name: Lynne Fabian RN Position: [facility] RN Member Role: Primary Care Nurse Name: Desiree Olivares RN Position: [facility] RN Member Role: Primary Care Nurse Care Team Related Persons Name: NINA CADE Name: WIL DALY Name: KELLI DALY Insurance Providers Guarantor name: CHAVEZ [employer] Health Plan Information #: 1 Payer: [facility] CARE ALLIANCE/ONE CARE Member Number: NA Policy Number: NA Group Number: NA
--- OUTSIDE RECORDS SUMMARY | 2024-12-28 18:28 | XMS_ITS | Continuity of Care Document ---
Author Organization [facility] Address [address] [place] [address]- Care Team Providers Care R D Engineer Name Role Phone [place] Greta BEAULIEU Primary Care Physician [phone] Encounter [facility] Date(s): 11/23/24 - 12/23/24 [facility] [address] [place], [place] [phone] Encounter Type: Triage Allergies, Adverse Reactions, Alerts [...] 14 09/14/08 Give n 1Result Comment: MFD: [employer] 2Result Comment: [09/11/2015] VIS in Djiboutian given With assistant press operator offset Ani 3Result Comment: [10/08/2014] fluarix trivalent 14-15 [...] Refills, Maintenance, 11/15/24 8:30:00 AM EST, Solution, [facility], Partial fill upon patient [...] PM EST, Aerosol, Route to Pharmacy Electronically, [id number],[facility]/pharmacy #[id number], 155, cm, 10/12/24 13:41:00 EST, Height, [...] KATE, # 360 mL, Refills 0, Maintenance, 12/21/24 8:04:00 AM EST, Instructions Replace Required Details, Route to Pharmacy Electronically, [id number], [facility] STORE [id number], 151.5, cm, 12/19/24 14:35:00 EST, Height, 73, kg, 11/14/24 10:43:00 EST, Dry Weight Start Date: 12/21/24 Status: Ordered Quantity: 360.0 Unit: mL Repeat [...] 4 Refills, Maintenance, 01/24/24 5:18:00 PM EST, [facility]/pharmacy #0488, 90, TAKE 1 TABLET BY MOUTH 2 TIMES A DAY FOR 90 DAYS WITH MEALS, 165, cm, 01/24/24 15:51:00 EST, Height, 73.3, kg, 01/23/24 18:29:00 EST, Dry Weight Start Date: 01/24/24 Status: Ordered Quantity: 180.0 Unit: tablet Repeat number: 5 capsaicin 0.025% topical cream 1 application, Topically, 2 times a day, # 60 Gm, 3 Refills, Maintenance, 08/10/24 11:46:00 AM EDT, Cream, [facility]/pharmacy #0488, Partial fill upon patient request if [...] Date: 06/09/18 Status: Ordered Repeat number: 1 CPAP Machine See Instructions, # 1 each, Maintenance, E0601 AutoCPAP to cm H20 with compliance data A4604 HeatedTubing/Climate line or A7037 Tubing A7038 or A7039 Filters A7036 Chin strap A7046 Humidifier Chamber A7035 Headgear A7027, A7030, A7031, A7032, A7033, A7034 Nasal, Full or Pillow Mask and parts [id number] Humidifier length of need Lifetime 99 months [...] parts ; Heated Humidifier E0562 Dx G47.33 ;compliant with PAP use and continued use is [...] Quantity: 40.0 Unit: capsule Repeat number: 2 estradiol 0.1 mg/g vaginal cream See Instructions, Apply a pea sized dab to vulva twice per week for maintenance therapy, # 42.5 Gm,4 Refills, Maintenance, 12/14/24 10:15:00 PM EST, [id number], Partial fill upon patient request if the prescription is for a schedule II opioid drug., 151.5, cm, 12/14/24 14:31:00 EST, Height,73, kg, 11/14/24 10:43:00 EST, Dry Weight Start Date: 12/14/24 Status: Ordered Quantity: 42.5 Unit: g Repeat number: 5 Indication: Other specified menopausal and perimenopausal disorders Freestyle Lite Lancets See Instructions, # 100 [...] patches after 12 hours, prn back pain, Djiboutian, # 60 patch, 5 Refills, Maintenance, 10/11/24 2:20:00 PM EST, Film, [facility], Partial fill upon patient request if the prescription is for a schedule II opioid drug., 2 patch Topically Daily,x30 days,Instr:remove patches after 12 hours, prn back pain, Djiboutian, 155, cm, 10/11/24 13:44:00 EST, Height, 79, [...] Mouth, 2 times a day, with meals, stateless label, # 180 tablet, 3 Refills, Maintenance, 10/11/24 2:18:00 PM EST, Tablet, [facility] #0488, 155, cm, 10/11/24 13:44:00 EST, Height, 79, kg, 09/20/24 19:29:00 EDT, Dry Weight Start Date: 10/11/24 Stop Date: 10/06/25 Status: Ordered Quantity: 180.0 Unit: tablet Repeat number: 4 metoprolol 25 mg oral tablet, extended release 25 mg, 1, tablet, By Mouth, Daily, # 90 tablet, Refills 3, Tot. Refills 3, Maintenance, 11/27/24 3:44:00 PM EST, Route to Pharmacy Electronically, [facility]/pharmacy #0488, Partial fill upon patient request if the prescription is for a schedule II opioid drug., 155, cm, 11/27/24 14:27:00 EST, Height, 73,kg, 11/14/24 10:43:00 EST, Dry Weight Start Date: 11/27/24 Status: Ordered Quantity: 90.0 Unit: tablet Repeat number: 4 Myrbetriq 25 mg oral tablet, extended release See Instructions, CHARLY HOBBSA TODOS LOS LEE, # 30 tablet, 2 Refills, Maintenance, 05/19/24 3:58:00 PM EDT, [facility]acy #0488, 157, cm, 05/16/24 16:05:00 EDT, Height, 77, kg, 03/25/24 19:43:00 EDT, Dry Weight Start Date: 05/19/24 Status: Ordered Quantity: 30.0 Unit: tablet Repeat number: 3 nabumetone 500 mg oral tablet See Instructions, TOME VERA TABLETA POR VIA ORAL DOS VECES AL KATE CON ALIMENTO CUANDO SEA NECESARIO PARA EL DOLOR, # 60 tablet, 1 Refills, Maintenance, 10/11/24 2:16:00 PM EST, [facility] #0488, 155, cm, 10/11/24 13:44:00 EST, Height, [...] times a day before meals, instructions in stateless 2 units for sugar 150- 199 5 [...] mL, 1 Refills,Maintenance, 11/21/24 9:12:00 AM EST, [facility] #0488, Partial fill upon patient request if [...] 3 Refills, Maintenance, 11/21/24 8:20:00 AM EST, [facility], 155, cm, 11/15/24 7:26:00 EST, Height, 73, kg, 11/14/24 10:43:00 EST, Dry Weight Start Date: 11/21/24 Status: Ordered Quantity: 180.0 Unit: capsule Repeat number: 1 ondansetron 4 mg oral tablet 1 tablet = 4 mg, By Mouth, Every 8 hours, # 12 tablet, 0 Refills, Maintenance, 03/07/24 1:20:00 PM EDT, Tablet, [facility] #0488, Partial fill upon patient request if the prescription is for a schedule II opioid drug., 159, cm, 03/03/24 8:08:00 EDT, Height, 75, kg, 03/03/24 8:08:00 EDT, Dry Weight Start Date: 03/07/24 Status: Ordered Quantity: 12.0 Unit: tablet Repeat number: 1 Pen [place], 31 G x 5 mm BD Ultra [...] 5 Refills, Maintenance, 10/11/24 2:16:00 PM EST, [facility]/pharmacy #0488, 30, TOME DOSTABLETAS POR VIA ORAL AL ACOSTARSE CUANDO SEA NECESARIO PARA LA CONSTIPACION, 155, cm, 10/11/24 13:44:00 EST, Height, 79, kg, 09/20/24 19:29:00 EDT, Dry Weight Start Date: 10/11/24 Status: Ordered Quantity: 60.0 Unit: tablet Repeat number: 6 simvastatin 20 mg oral tablet 20 mg, 1, tablet, By Mouth, Daily at bedtime, for cholesterol, Djiboutian label, # 90 tablet, Refills 4, Tot. Refills 4, Maintenance, 10/11/24 2:19:00 PM EST, Route to Pharmacy Electronically, [facility]acy #0488, 155, cm, 10/11/24 13:44:00 EST, Height, [...] mg, By Mouth, Daily, please label in stateless, # 90 each, 4 Refills, Maintenance, 10/11/24 2:17:00 PM EST, Tablet, [facility]/pharmacy #0488, 155, cm, 10/11/24 13:44:00 EST, Height, [...] Replace Required Details, Route to Pharmacy Electronically, [id number], [facility] [id number], 155, cm, 10/12/24 13:41:00 EST, Height, 79, kg, 09/20/24 19:29:00 EDT, Dry Weight Start Date: 10/23/24 Status: Ordered Quantity: 10.2 Unit: each Repeat number: 1 Tylenol Extra Strength 500 mg oral tablet 2 tablet = 1,000 mg, By Mouth, 4 times a day, PRN as needed for pain, # 100 tablet, 0 Refills, Maintenance, 01/12/23 8:36:00 AM EST, Tablet, [facility] #0488, Partial fill upon patient request if the prescription is for a schedule II opioid drug., 155, cm, 01/07/23 13:57:00 EST, Height, 76, kg, 04/28/22 20:47:00 EDT, Dry Weight Start Date: 01/12/23 Status: Ordered Quantity: 100.0 Unit: tablet Repeat number: 1 venlafaxine 37.5 mg oral capsule, extended release TOME VERA C JOSE ALEJANDROULA TODOS LOS D EN LA CHRISTINE REDDY [...] Osteoarthritis Confirmed Active Palpitations 3 Confirmed Active *[facility] Care/Network Field Engineer-Shazia Henry-[phone]/Health shelter, active care coordination Confirmed Active Polyarthritis Confirmed [...] Care Nurse Name: Josefina Tolliver RN Position: [facility] RN Member Role: Primary Care Nurse Name: Kerry Fonseca RN Position: [facility] RN Member Role: Primary Care Nurse Name: Greta Gomez NP Position: [facility] PCO Associate Professional Member Role: PCP Address: [address] [place] [address] Telecom: Name: Niki Kelly RN Position: [facility] RN Member Role: Primary Care Nurse Name: Felipe Wylie RN Position: [facility] RN Member Role: Primary Care Nurse Name: Laya Chandra RN Position: [facility] RN Member Role: Primary Care Nurse Name: Myrna Boyd RN Position: [facility] SN Pipe Fitter Soft Copper Member Role: Primary Care Nurse Name: Jace [...] [place] Health Plan Information #: 1 Payer: [facility] ALLIANCE/ONE CARE Member Number: NA Policy Number: NA Group Number: NA
--- OUTSIDE RECORDS SUMMARY | 2024-12-28 18:28 | XMS_ITS | Clinical Summary ---
Author Organization [facility] ity Address [address] [place] [address] Care Team Providers Care Organic Search Lead Name Role Phone Unavailable Primary Care Provider Unavailabl e Social History Tobacco Use Types Packs/Day Years Used Date Smoking Tobacco: Never Assessed Sex and Gender Information Value Date Recorded Sex Assigned at Not on file Gender Identity Not on file Sexual Orientation Not on file Plan of Treatment Health Maintenance Due Date Last Done Comments Breast Cancer Screening 1964 DTaP,Tdap,and Td Vaccines (1 - Tdap) 1983 Cervical Cancer Screening: P ap Smear 1985 Zoster Vaccines (1 of 2) 2014 Colorectal Cancer Screening: Colonoscopy 11/01/2022 Depression Screening 11/01/2022 HIV Screening 11/01/2022 Hepatitis C Screening 11/01/2022 Social Influencers of Health Screening 11/01/2022 COVID-19 Vaccine ( - 2023-2 5 season) 2024 Influenza Vaccine (#1) 2024 RSV Immunization Patients 60 + Years Old (1 - 1-dose 75+ series) 2039 HIB Vaccines Aged Out No longer eligi ble based on patient's age to complete this topic HPV Vaccines Aged Out No longer eligi ble based on patient's age to complete this topic Hepatitis A Vaccines Aged Out No long er eligible based on patient's age to complete this topic Hepatitis B Vaccines Aged Out No long er eligible based on patient's age to complete this topic IPV Vaccines Aged Out No longer eligi ble based on patient's age to complete this topic MMR Vaccines Aged Out No longer eligi ble based on patient's age to complete this topic Meningococcal ACWY Vaccine Aged Out N o longer eligible based on patient's age to complete this topic Pneumococcal Vaccine: Pediat rics (0 to 5 Years) and At-Risk Patients (6 to 64 Years) Aged Out No longer eligible b ased on patient's age to complete this topic RSV Immunization Patients Un joshua 20 months Aged Out No longer eligible b ased on patient's age to complete this topic Varicella Vaccines Aged Out No longer eligible based on patient's age to complete this topic
--- OUTSIDE RECORDS SUMMARY | 2024-12-28 18:28 | XMS_ITS | Continuity of Care Document ---
Author Organization [facility] Address [address] [place] [address]- Care Team Providers Care Wildlife Forensic Geneticist Name Role Phone [place] Greta BEAULIEU Primary Care Physician Encounter [facility] Date(s): 11/21/24 - 12/21/24 [facility] [address], [place] [phone] Encounter Type: Triage Allergies, Adverse Reactions, Alerts [...] 14 09/14/08 Give n 1Result Comment: MFD: [employer], [employer] 2Result Comment: [09/11/2015] VIS in [place]guillan given With language interpreter Ani 3Result Comment: [10/08/2014] fluarix trivalent 14-15 [...] Refills, Maintenance, 11/15/24 8:30:00 AM EST, Solution, [facility], Partial fill upon patient [...] PM EST, Aerosol, Route to Pharmacy Electronically, [id number],[facility]/pharmacy #[id number], 155, cm, 10/12/24 13:41:00 EST, [...] Instructions, TAKE 2 ML BY NEBULIZATION DOS ARIANAES AL KATE, # 360 mL, Refills 0, Maintenance, 12/21/24 8:04:00 AM EST, Instructions Replace Required Details, Route to Pharmacy Electronically, [id number], [id number], 151.5, cm, 12/19/24 14:35:00 EST, Height, 73, [...] 4 Refills, Maintenance, 01/24/24 5:18:00 PM EST, [facility]/pharmacy #[id number], 90, TAKE 1 TABLET BY [...] Refills, Maintenance, 08/10/24 11:46:00 AM EDT, Cream, [facility]/pharmacy #[id number], Partial fill upon patient request [...] Nasal, Full or Pillow Mask and parts [id number] Humidifier length of need Lifetime 99 months [...] patches after 12 hours, prn back pain, [place]guillan, # 60 patch, 5 Refills, Maintenance, 10/11/24 2:20:00 PM EST, Film, [id number], Partial fill upon patient request if the prescription is for a schedule II opioid drug., 2 patch Topically Daily,x30 days,Instr:remove patches after 12 hours, prn back pain, [place], 155, cm, 10/11/24 13:44:00 EST, Height, 79, [...] Mouth, 2 times a day, with meals, brazilian label, # 180 tablet, 3 Refills, Maintenance, 10/11/24 2:18:00 PM EST, Tablet, [facility]/pharmacy #[id number], 155, cm, 10/11/24 13:44:00 EST, Height, 79, kg, 09/20/24 19:29:00 EDT, Dry Weight Start Date: 10/11/24 Stop Date: 10/06/25 Status: Ordered Quantity: 180.0 Unit: tablet Repeat number: 4 metoprolol 25 mg oral tablet, extended release 25 mg, 1, tablet, By Mouth, Daily, # 90 tablet, Refills 3, Tot. Refills 3, Maintenance, 11/27/24 3:44:00 PM EST, Route to Pharmacy Electronically, [facility]/pharmacy #[id number], Partial fill upon patient request [...] 2 Refills, Maintenance, 05/19/24 3:58:00 PM EDT, [facility]/pharmacy #[id number], 157, cm, 05/16/24 16:05:00 EDT, Height, 77, kg, 03/25/24 19:43:00 EDT, Dry Weight Start Date: 05/19/24 Status: Ordered Quantity: 30.0 Unit: tablet Repeat number: 3 nabumetone 500 mg oral tablet See Instructions, TOME VERA TABLETA POR VIA ORAL DOS VECES AL KATE CON ALIMENTO CUANDO SEA NECESARIO PARA EL DOLOR, # 60 tablet, 1 Refills, Maintenance, 10/11/24 2:16:00 PM EST, [facility]/pharmacy #[id number], 155, cm, 10/11/24 13:44:00 EST, [...] times a day before meals, instructions in brazilian 2 units for sugar 150- 199 5 units for sugar 200 - 249 8 units for sugar 250 - 299 11 units for sugar 300 - 349 14 units for sugar 350 - 399, # 15 mL, 6 Refills, Maintenance, 11/27/24 3:50:00 PM EST, Solution, [facility]/pharmacy #[id number], Partial fill upon patient request [...] mL, 1 Refills,Maintenance, 11/21/24 9:12:00 AM EST, [facility]/pharmacy #[id number], Partial fill upon patient request [...] 3 Refills, Maintenance, 11/21/24 8:20:00 AM EST, [id number], 155, cm, 11/15/24 7:26:00 EST, Height, 73, kg, 11/14/24 10:43:00 EST, Dry Weight Start Date: 11/21/24 Status: Ordered Quantity: 180.0 Unit: capsule Repeat number: 1 ondansetron 4 mg oral tablet 1 tablet = 4 mg, By Mouth, Every 8 hours, # 12 tablet, 0 Refills, Maintenance, 03/07/24 1:20:00 PM EDT, Tablet, [facility]/pharmacy #[id number], Partial fill upon patient request if the prescription is for a schedule II opioid drug., 159, cm, 03/03/24 8:08:00 EDT, Height, 75, kg, 03/03/24 8:08:00 EDT, Dry Weight Start Date: 03/07/24 Status: Ordered Quantity: 12.0 Unit: tablet Repeat number: 1 Pen [place], 31 G x 5 mm BD Ultra [...] 5 Refills, Maintenance, 10/11/24 2:16:00 PM EST, [facility]/pharmacy #0488, 30, TOME DOSTABLETAS POR VIA ORAL AL ACOSTARSE CUANDO SEA NECESARIO PARA LA CONSTIPACION, 155, cm, 10/11/24 13:44:00 EST, Height, 79, kg, 09/20/24 19:29:00 EDT, Dry Weight Start Date: 10/11/24 Status: Ordered Quantity: 60.0 Unit: tablet Repeat number: 6 simvastatin 20 mg oral tablet 20 mg, 1, tablet, By Mouth, Daily at bedtime, for cholesterol, Anguillan label, # 90 tablet, Refills 4, Tot. Refills 4, Maintenance, 10/11/24 2:19:00 PM EST, Route to Pharmacy Electronically, [facility]/pharmacy #[id number], 155, cm, 10/11/24 13:44:00 EST, [...] mg, By Mouth, Daily, please label in brazilian, # 90 each, 4 Refills, Maintenance, 10/11/24 2:17:00 PM EST, Tablet, [facility]/pharmacy #[id number], 155, cm, 10/11/24 13:44:00 EST, [...] Replace Required Details, Route to Pharmacy Electronically, [id number], [facility], 155, cm, 10/12/24 13:41:00 EST, Height, 79, kg, 09/20/24 19:29:00 EDT, Dry Weight Start Date: 10/23/24 Status: Ordered Quantity: 10.2 Unit: each Repeat number: 1 Tylenol Extra Strength 500 mg oral tablet 2 tablet = 1,000 mg, By Mouth, 4 times a day, PRN as needed for pain, # 100 tablet, 0 Refills, Maintenance, 01/12/23 8:36:00 AM EST, Tablet, [facility]/pharmacy #[id number], Partial fill upon patient request if the prescription is for a schedule II opioid drug., 155, cm, 01/07/23 13:57:00 EST, Height, 76, kg, 04/28/22 20:47:00 EDT, Dry Weight Start Date: 01/12/23 Status: Ordered Quantity: 100.0 Unit: tablet Repeat number: 1 venlafaxine 37.5 mg oral capsule, extended release TOME VERA Bob ZAMARRIPA TODOS LOS D EN LA CHRISTINE REDDY [...] Osteoarthritis Confirmed Active Palpitations 3 Confirmed Active *BHN/CCA/[facility] Care/Lip Cutter And Scorer-Shazia Henry-[phone]/Health intermediate, active care coordination Confirmed Active Polyarthritis Confirmed [...] Team Personnel Name: Fauzia Lynne RN Position: [facility] AMB Nurse Member Role: Primary Care Nurse Name: Margot Turner RN Position: [facility] RN Member Role: Primary Care Nurse Name: More Marie RN Position: [facility] RN Member Role: Primary Care Nurse Name: Rony Jackson RN Position: [facility] RN Member Role: Primary Care Nurse Name: Selena Walker RN Position: [facility] RN Member Role: Primary Care Nurse Name: Gloria Tello RN Position: [facility] RN Member Role: Primary Care Nurse Name: Alice Maloney RN Position: [facility] SN RN Member Role: Primary Care Nurse Name: Josefina Tolliver RN Position: [facility] RN Member Role: Primary Care Nurse Name: Kerry Fonseca RN Position: [facility] RN Member Role: Primary Care Nurse Name: Greta Gomez NP Position: [facility] PCO Associate Professional Member Role: PCP Address: [address] [place] [address] Telecom: Name: Niki Kelly RN Position: [facility] RN Member Role: Primary Care Nurse Name: Felipe Wylie RN Position: [facility] RN Member Role: Primary Care Nurse Name: Laya Chandra RN Position: [facility] RN Member Role: Primary Care Nurse Name: Myrna Boyd RN Position: [facility] SN Agricultural Produce Commission Agent Member Role: Primary Care Nurse Name: Jace Beard RN Position: [facility] RN Member Role: Primary Care Nurse Name: Gabbi Contreras RN Position: [facility] ED RN W/OE and Tasks Member Role: Primary Care Nurse Name: Elsie Maria RN Position: [facility] RN Member Role: Primary Care Nurse Name: Jcae Cosme RN Position: [facility] RN Member Role: Primary Care Nurse Name: Lynne Fabian RN Position: [facility] RN Member Role: Primary Care Nurse Name: Desiree Olivares RN Position: [facility] RN Member Role: Primary Care Nurse Care Team Related Persons Name: NINA CADE Name: WIL DALY Name: KELLI DALY Insurance Providers Guarantor name: CHAVEZ PRITCHETT Health Plan Information #: 1 Payer: [facility] ALLI[facility]/ONE CARE Member Number: NA Policy Number: NA Group Number: NA
--- OUTSIDE RECORDS SUMMARY | 2024-12-28 18:28 | XMS_ITS | Continuity of Care Document ---
Author Organization [facility] Address [address] [place] [address]- Care Team Providers Care Ammunition Assembly Laborer Name Role Phone [place] Greta BEAULIEU Primary Care Physician [phone] Encounter [facility] Date(s): 11/02/24 - 12/02/24 [facility] [address] [place], [place] [phone] Encounter Type: Triage Allergies, Adverse Reactions, Alerts [...] 14 09/14/08 Give n 1Result Comment: MFD: [employer], [employer] 2Result Comment: [09/11/2015] VIS in Tuvaluan given With senior erp consultant Ani 3Result Comment: [10/08/2014] fluarix trivalent 14-15 [...] Refills, Maintenance, 11/15/24 8:30:00 AM EST, Solution, [facility], Partial fill upon patient [...] PM EST, Aerosol, Route to Pharmacy Electronically, [id number],[facility]/pharmacy #[id number], 155, cm, 10/12/24 13:41:00 EST, Height, [...] Replace Required Details, Route to Pharmacy Electronically, [id number], [facility] [address], 155, cm, 09/20/24 19:29:00 EDT, Height, 79, [...] 4 Refills, Maintenance, 01/24/24 5:18:00 PM EST, [facility]/pharmacy #0488, 90, TAKE 1 TABLET BY MOUTH 2 TIMES A DAY FOR 90 DAYS WITH MEALS, 165, cm, 01/24/24 15:51:00 EST, Height, 73.3, kg, 01/23/24 18:29:00 EST, Dry Weight Start Date: 01/24/24 Status: Ordered Quantity: 180.0 Unit: tablet Repeat number: 5 capsaicin 0.025% topical cream 1 application, Topically, 2 times a day, # 60 Gm, 3 Refills, Maintenance, 08/10/24 11:46:00 AM EDT, Cream, [facility]/pharmacy #0488, Partial fill upon patient request if [...] 5 Refills, Maintenance, 05/19/24 5:16:00 PM EDT, [facility]/pharmacy #0488, Partial fill upon patient request if [...] Refills, Maintenance, 08/10/24 11:44:00 AM EDT, Tablet, [facility]/pharmacy #0488, Partial fill upon patient request if [...] 11 Refills, Maintenance, 10/11/24 2:18:00 PM EST, [facility]/pharmacy #0488, 30, DISOLVER [address]UA, [...] patches after 12 hours, prn back pain, Tuvaluan, # 60 patch, 5 Refills, Maintenance, 10/11/24 2:20:00 PM EST, Film, [facility], Partial fill upon patient request if the prescription is for a schedule II opioid drug., 2 patch Topically Daily,x30 days,Instr:remove patches after 12 hours, prn back pain, Tu[place]uan, 155, cm, 10/11/24 13:44:00 EST, Height, 79, [...] Refills, Maintenance, 09/26/24 10:31:00 AM EDT, Tablet, [facility]/pharmacy #0488, Partial fill upon patient request if [...] Mouth, 2 times a day, with meals, nigerien label, # 180 tablet, 3 Refills, Maintenance, 10/11/24 2:18:00 PM EST, Tablet, [facility]/pharmacy #0488, 155, cm, 10/11/24 13:44:00 EST, Height, 79, kg, 09/20/24 19:29:00 EDT, Dry Weight Start Date: 10/11/24 Stop Date: 10/06/25 Status: Ordered Quantity: 180.0 Unit: tablet Repeat number: 4 metoprolol 25 mg oral tablet, extended release 25 mg, 1, tablet, By Mouth, Daily, # 90 tablet, Refills 3, Tot. Refills 3, Maintenance, 11/27/24 3:44:00 PM EST, Route to Pharmacy Electronically, [facility]/pharmacy #[id number], Partial fill upon patient request if [...] 2 Refills, Maintenance, 05/19/24 3:58:00 PM EDT, [facility]/pharmacy #0488, 157, cm, 05/16/24 16:05:00 EDT, Height, 77, kg, 03/25/24 19:43:00 EDT, Dry Weight Start Date: 05/19/24 Status: Ordered Quantity: 30.0 Unit: tablet Repeat number: 3 nabumetone 500 mg oral tablet See Instructions, TOME VERA TABLETA POR VIA ORAL DOS VECES AL KATE CON ALIMENTO CUANDO SEA NECESARIO PARA EL DOLOR, # 60 tablet, 1 Refills, Maintenance, 10/11/24 2:16:00 PM EST, [facility], 155, [...] times a day before meals, instructions in nigerien 2 units for sugar 150- 199 5 [...] 3 Refills, Maintenance, 11/21/24 8:20:00 AM EST, [facility] [address], 155, cm, 11/15/24 7:26:00 EST, Height, 73, kg, 11/14/24 10:43:00 EST, Dry Weight Start Date: 11/21/24 Status: Ordered Quantity: 180.0 Unit: capsule Repeat number: 1 ondansetron 4 mg oral tablet 1 tablet = 4 mg, By Mouth, Every 8 hours, # 12 tablet, 0 Refills, Maintenance, 03/07/24 1:20:00 PM EDT, Tablet, [facility]/pharmacy #0488, Partial fill upon patient request if the prescription is for a schedule II opioid drug., 159, cm, 03/03/24 8:08:00 EDT, Height, 75, kg, 03/03/24 8:08:00 EDT, Dry Weight Start Date: 03/07/24 Status: Ordered Quantity: 12.0 Unit: tablet Repeat number: 1 Pen [place], 31 G x 5 mm BD Ultra [...] 5 Refills, Maintenance, 10/11/24 2:16:00 PM EST, [facility]/pharmacy #0488, 30, TOME DOSTABLETAS POR VIA ORAL AL ACOSTARSE CUANDO SEA NECESARIO PARA LA CONSTIPACION, 155, cm, 10/11/24 13:44:00 EST, Height, 79, kg, 09/20/24 19:29:00 EDT, Dry Weight Start Date: 10/11/24 Status: Ordered Quantity: 60.0 Unit: tablet Repeat number: 6 simvastatin 20 mg oral tablet 20 mg, 1, tablet, By Mouth, Daily at bedtime, for cholesterol, Tuvaluan label, # 90 tablet, Refills 4, Tot. Refills 4, Maintenance, 10/11/24 2:19:00 PM EST, Route to Pharmacy Electronically, [facility]/pharmacy #0488, 155, cm, 10/11/24 13:44:00 EST, Height, [...] mg, By Mouth, Daily, please label in nigerien, # 90 each, 4 Refills, Maintenance, 10/11/24 2:17:00 PM EST, Tablet, [facility]/pharmacy #0488, 155, cm, 10/11/24 13:44:00 EST, Height, [...] Replace Required Details, Route to Pharmacy Electronically, [id number], [facility], 155, cm, 10/12/24 13:41:00 EST, Height, 79, kg, 09/20/24 19:29:00 EDT, Dry Weight Start Date: 10/23/24 Status: Ordered Quantity: 10.2 Unit: each Repeat number: 1 Tylenol Extra Strength 500 mg oral tablet 2 tablet = 1,000 mg, By Mouth, 4 times a day, PRN as needed for pain, # 100 tablet, 0 Refills, Maintenance, 01/12/23 8:36:00 AM EST, Tablet, [facility]/pharmacy #0488, Partial fill upon patient request if the prescription is for a schedule II opioid drug., 155, cm, 01/07/23 13:57:00 EST, Height, 76, kg, 04/28/22 20:47:00 EDT, Dry Weight Start Date: 01/12/23 Status: Ordered Quantity: 100.0 Unit: tablet Repeat number: 1 venlafaxine 37.5 mg oral capsule, extended release TOME VERA Bob PSULA TODOS LOS D EN LA MA MAUREEN [...] Confirmed Active Palpitations 3 Confirmed Active *[facility]/Flame Hardening Machine Operator-Shazia Henry-[phone]/Health skilled nursing, active care coordination Confirmed Active Polyarthritis Confirmed [...] Team Personnel Name: Fauzia Lynne RN Position: [facility] AMB Nurse Member Role: Primary Care Nurse Name: Margot Turner RN Position: [facility] RN Member Role: Primary Care Nurse Name: More Marie RN Position: [facility] RN Member Role: Primary Care Nurse Name: Rony Jackson RN Position: [facility] RN Member Role: Primary Care Nurse Name: Selena Walker RN Position: [facility] RN Member Role: Primary Care Nurse Name: Gloria Tello RN Position: [facility] RN Member Role: Primary Care Nurse Name: Alice Maloney RN Position: [facility] SN RN Member Role: Primary Care Nurse Name: Josefina Tolliver RN Position: [facility] RN Member Role: Primary Care Nurse Name: Kerry Fonseca RN Position: [facility] RN Member Role: Primary Care Nurse Name: Greta Gomez NP Position: [facility] PCO Associate Professional Member Role: PCP Address: [address] [place] [address] Telecom: Name: Niki Kelly RN Position: [facility] RN Member Role: Primary Care Nurse Name: Felipe Wylie RN Position: [facility] RN Member Role: Primary Care Nurse Name: Laya Chandra RN Position: [facility] RN Member Role: Primary Care Nurse Name: Myrna Boyd RN Position: [facility] SN Hospital Internship Member Role: Primary Care Nurse Name: Jace Beard RN Position: [facility] RN Member Role: Primary Care Nurse Name: Gabbi Contreras RN Position: [facility] ED RN W/OE and Tasks Member Role: Primary Care Nurse Name: Elsie Maria RN Position: [facility] RN Member Role: Primary Care Nurse Name: Jace Cosme RN Position: [facility] RN Member Role: Primary Care Nurse Name: Lynne Fabian RN Position: [facility] RN Member Role: Primary Care Nurse Name: Desiree Olivares RN Position: [facility] RN Member Role: Primary Care Nurse Care Team Related Persons Name: NINA CADE Name: WIL DALY Name: KELLI DALY Insurance Providers Guarantor name: CHAVEZ [facility] Plan Information #: 1 Payer: [facility] C[facility] ALLIANCE/[facility] Member Number: NA Policy Number: NA Group Number: NA
--- OUTSIDE RECORDS SUMMARY | 2024-12-28 18:28 | XMS_ITS | Continuity of Care Document ---
Author Organization [facility] Pulmonary M edicine Address [address] [place] [address]- Care Team Providers Care Television Camera Operator Name Role Phone [place] Greta BEAULIEU Primary Care Physician [place] [facility] [place] 12/23/24 [facility] Medicine [address] [place] [id number] Encounter Type: Triage Allergies, Adverse Reactions, Alerts [...] 14 09/14/08 Give n 1Result Comment: MFD: Arteris 2Result Comment: [09/11/2015] VIS in Paraguayan given With cutter helper FelicityTarsus Medicallizzie 3Result Comment: [10/08/2014] fluarix trivalent 14-15 4Admin [...] Refills, Maintenance, 11/15/24 8:30:00 AM EST, Solution, [facility], Partial fill upon patient [...] PM EST, Aerosol, Route to Pharmacy Electronically, [id number],[facility]/pharmacy #[id number], 155, cm, 10/12/24 13:41:00 EST, [...] Replace Required Details, Route to Pharmacy Electronically, [id number], [facility] STORE 70775, 151.5, cm, 12/19/24 14:35:00 EST, Height, 73, [...] 4 Refills, Maintenance, 01/24/24 5:18:00 PM EST, [facility]/pharmacy #[id number], 90, TAKE 1 TABLET BY [...] Refills, Maintenance, 08/10/24 11:46:00 AM EDT, Cream, [facility]/pharmacy #[id number], Partial fill upon patient request [...] Nasal, Full or Pillow Mask and parts [id number] Humidifier length of need Lifetime 99 months [...] patches after 12 hours, prn back pain, Paraguayan, # 60 patch, 5 Refills, Maintenance, 10/11/24 2:20:00 PM EST, Film, [id number], Partial fill upon patient request if the prescription is for a schedule II opioid drug., 2 patch Topically Daily,x30 days,Instr:remove patches after 12 hours, prn back pain, Paraguayan, 155, cm, 10/11/24 13:44:00 EST, Height, 79, [...] Mouth, 2 times a day, with meals, liberian label, # 180 tablet, 3 Refills, Maintenance, 10/11/24 2:18:00 PM EST, Tablet, [facility]/pharmacy #[id number], 155, cm, 10/11/24 13:44:00 EST, Height, 79, kg, 09/20/24 19:29:00 EDT, Dry Weight Start Date: 10/11/24 Stop Date: 10/06/25 Status: Ordered Quantity: 180.0 Unit: tablet Repeat number: 4 metoprolol 25 mg oral tablet, extended release 25 mg, 1, tablet, By Mouth, Daily, # 90 tablet, Refills 3, Tot. Refills 3, Maintenance, 11/27/24 3:44:00 PM EST, Route to Pharmacy Electronically, [facility]/pharmacy #[id number], Partial fill upon patient request [...] 2 Refills, Maintenance, 05/19/24 3:58:00 PM EDT, [facility]/pharmacy #[id number], 157, cm, 05/16/24 16:05:00 EDT, Height, 77, kg, 03/25/24 19:43:00 EDT, Dry Weight Start Date: 05/19/24 Status: Ordered Quantity: 30.0 Unit: tablet Repeat number: 3 nabumetone 500 mg oral tablet See Instructions, TOME VERA TABLETA POR VIA ORAL DOS VECES AL KATE CON ALIMENTO CUANDO SEA NECESARIO PARA EL DOLOR, # 60 tablet, 1 Refills, Maintenance, 10/11/24 2:16:00 PM EST, [facility]/pharmacy #[id number], 155, cm, 10/11/24 13:44:00 EST, [...] times a day before meals, instructions in liberian 2 units for sugar 150- 199 5 [...] mL, 1 Refills,Maintenance, 11/21/24 9:12:00 AM EST, [facility]/pharmacy #[id number], Partial fill upon patient request [...] Maintenance, 11/21/24 8:20:00 AM EST, [id number], 155, cm, 11/15/24 7:26:00 EST, Height, 73, kg, 11/14/24 10:43:00 EST, Dry Weight Start Date: 11/21/24 Status: Ordered Quantity: 180.0 Unit: capsule Repeat number: 1 ondansetron 4 mg oral tablet 1 tablet = 4 mg, By Mouth, Every 8 hours, # 12 tablet, 0 Refills, Maintenance, 03/07/24 1:20:00 PM EDT, Tablet, [facility]/pharmacy #[id number], Partial fill upon patient request if the prescription is for a schedule II opioid drug., 159, cm, 03/03/24 8:08:00 EDT, Height, 75, kg, 03/03/24 8:08:00 EDT, Dry Weight Start Date: 03/07/24 Status: Ordered Quantity: 12.0 Unit: tablet Repeat number: 1 Pen [place], 31 G x 5 mm BD Ultra [...] 5 Refills, Maintenance, 10/11/24 2:16:00 PM EST, [facility]/pharmacy #[id number], 30, TOME DOSTABLETAS POR VIA ORAL AL ACOSTARSE CUANDO SEA NECESARIO PARA LA CONSTIPACION, 155, cm, 10/11/24 13:44:00 EST, Height, 79, kg, 09/20/24 19:29:00 EDT, Dry Weight Start Date: 10/11/24 Status: Ordered Quantity: 60.0 Unit: tablet Repeat number: 6 simvastatin 20 mg oral tablet 20 mg, 1, tablet, By Mouth, Daily at bedtime, for cholesterol, Paraguayan label, # 90 tablet, Refills 4, Tot. Refills 4, Maintenance, 10/11/24 2:19:00 PM EST, Route to Pharmacy Electronically, [facility]/pharmacy #[id number], 155, cm, 10/11/24 13:44:00 EST, [...] mg, By Mouth, Daily, please label in liberian, # 90 each, 4 Refills, Maintenance, 10/11/24 2:17:00 PM EST, Tablet, [facility]/pharmacy #[id number], 155, cm, 10/11/24 13:44:00 EST, [...] Replace Required Details, Route to Pharmacy Electronically, [id number], [facility] STORE [id number], 155, cm, 10/12/24 13:41:00 EST, Height, 79, kg, 09/20/24 19:29:00 EDT, Dry Weight Start Date: 10/23/24 Status: Ordered Quantity: 10.2 Unit: each Repeat number: 1 Tylenol Extra Strength 500 mg oral tablet 2 tablet = 1,000 mg, By Mouth, 4 times a day, PRN as needed for pain, # 100 tablet, 0 Refills, Maintenance, 01/12/23 8:36:00 AM EST, Tablet, [facility]/pharmacy #[id number], Partial fill upon patient request [...] Osteoarthritis Confirmed Active Palpitations 3 Confirmed Active *BHN/CCA/[facility] Care/Inspector Filters-Shazia Henry-[phone]/Health fci, active care coordination Confirmed Active Polyarthritis Confirmed [...] Team Personnel Name: Fauzia Lynne RN Position: [facility] AMB Nurse Member Role: Primary Care Nurse Name: Margot Turner RN Position: [facility] RN Member Role: Primary Care Nurse Name: More Marie RN Position: [facility] RN Member Role: Primary Care Nurse Name: Rony Jackson RN Position: [facility] RN Member Role: Primary Care Nurse Name: Selena Walker RN Position: [facility] RN Member Role: Primary Care Nurse Name: Gloria Tello RN Position: [facility] RN Member Role: Primary Care Nurse Name: Alice Maloney RN Position: [facility] RN Member Role: Primary Care Nurse Name: Josefina Tolliver RN Position: [facility] RN Member Role: Primary Care Nurse Name: Kerry Fonseca RN Position: [facility] RN Member Role: Primary Care Nurse Name: Greta Gomez NP Position: [facility] PCO Associate Professional Member Role: PCP Address: [address] [place] [address] Telecom: Name: Niki Kelly RN Position: [facility] RN Member Role: Primary Care Nurse Name: Felipe Wylie RN Position: [facility] RN Member Role: Primary Care Nurse Name: Laya Chandra RN Position: [facility] RN Member Role: Primary Care Nurse Name: Myrna Boyd RN Position: [facility] SN Tool Repairer Member Role: Primary Care Nurse Name: Jace Beard RN Position: [facility] RN Member Role: Primary Care Nurse Name: Gabbi Contreras RN Position: [facility] ED RN W/OE and Tasks Member Role: Primary Care Nurse Name: Elsie Maria RN Position: [facility] RN Member Role: Primary Care Nurse Name: Jace Cosme RN Position: [facility] RN Member Role: Primary Care Nurse Name: Lynne Fabian RN Position: [facility] RN Member Role: Primary Care Nurse Name: Desiree Olivares RN Position: [facility] RN Member Role: Primary Care Nurse Care Team Related Persons Name: NINA CADE Name: WIL DALY Name: KELLI DALY Insurance Providers Guarantor name: CHAVEZ PRITCHETT [facility] Plan Information #: 1 Payer: [facility] CARE ALLIANCE/ONE CARE Member Number: NA Policy Number: NA Group Number: NA
--- OUTSIDE RECORDS SUMMARY | 2024-12-28 18:28 | XMS_ITS | Continuity of Care Document ---
Author Organization [facility] Adult [facility] Address [address] [place] [address]- Care Team Providers Care Benefits Officer Name Role Phone [place] Greta BEAULIEU Primary Care Physician En[place] [facility] [place] Date(s): 11/23/24 - 12/23/24 [facility] [address] [place] [phone] Attending Physician: Chapin Jack MD Admitting Physician: Chapin Jack MD Encounter Type: Pre-OutPatient One Time Allergies, Adverse Reactions, Alerts Substance Criticality Severity [...] 14 09/14/08 Give n 1Result Comment: MFD: [employer], [place] 2Result Comment: [09/11/2015] VIS in [place] Islander given With individual small group instructor Ani 3Result Comment: [10/08/2014] fluarix trivalent 14-15 [...] Refills, Maintenance, 11/15/24 8:30:00 AM EST, Solution, [facility], Partial fill upon patient [...] PM EST, Aerosol, Route to Pharmacy Electronically, [id number],[facility]/pharmacy #[id number], 155, cm, [...] Replace Required Details, Route to Pharmacy Electronically, [id number], [facility] STORE 40610, 151.5, cm, 12/19/24 14:35:00 EST, Height, 73, [...] Nasal, Full or Pillow Mask and parts [id number] Humidifier length of need Lifetime 99 months [...] capsule, 1 Refills, 10/11/24 2:16:00 PM EST, [facility] [...] Gm,4 Refills, Maintenance, 12/14/24 10:15:00 PM EST, [facility]/pharmacy [...] patches after 12 hours, prn back pain, [place] Islander, # 60 patch, 5 Refills, Maintenance, 10/11/24 2:20:00 PM EST, Film, [facility]/pharmacy #[id number], Partial fill upon patient request if the prescription is for a schedule II opioid drug., 2 patch Topically Daily,x30 days,Instr:remove patches after 12 hours, prn back pain, [place] Islander, 155, cm, 10/11/24 13:44:00 EST, Height, 79, kg,09/20/24 19:29:00 EDT, Dry Weight Start Date: 10/11/24 Stop Date: 04/09/25 Status: Ordered Quantity: 60.0 Unit: patch Repeat number: 6 linaclotide 145 mcg oral capsule 1 capsule = 145 mcg, By Mouth, Daily, # 30 capsule, 2 Refills, Maintenance, 09/28/24 8:22:00 AM EDT, Capsule, [facility]/pharmacy #[id number], Partial [...] Refills, Maintenance, 09/26/24 10:31:00 AM EDT, Tablet, [facility]/pharmacy [...] Mouth, 2 times a day, with meals, scottish label, # 180 tablet, 3 Refills, Maintenance, [...] oral tablet, extended release See Instructions, CHARLY ARRIAGA TODOS [place], # 30 tablet, 2 Refills, Maintenance, 6/21/24 3:58:00 PM EDT, [id number], 157, cm, 05/16/24 16:05:00 EDT, Height, [...] times a day before meals, instructions in scottish 2 units for sugar 150- 199 5 [...] Maintenance, 11/21/24 8:20:00 AM EST, [facility], 155, cm, 11/15/24 7:26:00 EST, Height, 73, [...] 12.0 Unit: tablet Repeat number: 1 Pen [place], 31 G x 5 mm BD Ultra [...] By Mouth, Daily at bedtime, for cholesterol, [place] Islander label, # 90 tablet, Refills 4, Tot. [...] mg, By Mouth, Daily, please label in scottish, # 90 each, 4 Refills, Maintenance, 10/11/24 [...] Replace Required Details, Route to Pharmacy Electronically, [id number], [facility] STORE [id number], 155, cm, 10/12/24 13:41:00 EST, Height, 79, [...] mg oral capsule, extended release TOME VERA ZAMARRIPA TODOS LOS D EN MARCOS ERDDY Start Date: 07/16/22 Status: Ordered Repeat number: [...] Osteoarthritis Confirmed Active Palpitations 3 Confirmed Active *BHN/CCA/[facility] Care/Casino Worker-Shazia Henry-[phone]/Health senior care, active care coordination Confirmed Active Polyarthritis Confirmed [...] Team Personnel Name: Fauzia Lynne RN Position: [facility] AMB Nurse Member Role: Primary Care Nurse Name: Margot Turner RN Position: [facility] RN Member Role: Primary Care Nurse Name: More Marie RN Position: [facility] RN Member Role: Primary Care Nurse Name: Rony Jackson RN Position: [facility] RN Member Role: Primary Care Nurse Name: Selena Walker RN Position: [facility] RN Member Role: Primary Care Nurse Name: Gloria Tello RN Position: [facility] RN Member Role: Primary Care Nurse Name: Alice Maloney RN Position: [facility] RN Member Role: Primary Care Nurse Name: Josefina Tolliver RN Position: [facility] RN Member Role: Primary Care Nurse Name: Kerry Fonseca RN Position: [facility] RN Member Role: Primary Care Nurse Name: Greta Gomez NP Position: [facility] PCO Associate Professional Member Role: PCP Address: [address] [place] [id number] Telecom: Name: Niki Kelly RN Position: [facility] RN Member Role: Primary Care Nurse Name: Felipe Wylie RN Position: [facility] RN Member Role: Primary Care Nurse Name: Laya Chandra RN Position: [facility] RN Member Role: Primary Care Nurse Name: Myrna Boyd RN Position: [facility] SN Landscaping Supervisor Member Role: Primary Care Nurse Name: Jace Beard RN Position: [facility] RN Member Role: Primary Care Nurse Name: Gabbi Contreras RN Position: [facility] ED RN W/OE and Tasks Member Role: Primary Care Nurse Name: Elsie Maria RN Position: [facility] RN Member Role: Primary Care Nurse Name: Jace Cosme RN Position: [facility] RN Member Role: Primary Care Nurse Name: Lynne Fabian RN Position: [facility] RN Member Role: Primary Care Nurse Name: Desiree Olivares RN Position: [facility] RN Member Role: Primary Care Nurse Care Team Related Persons Name: NINA CADE Name: WIL DALY Name: KELLI DALY Insurance Providers Guarantor name: CHAVEZ PRITCHETT Health Plan Information #: 1 Payer: [facility] [employer]/ONE CARE Member Number: [id number] Policy Number: NA Group Number: [facility] Health Plan Information #: 2 Payer: [employer] Member Number: [id number] Policy Number: NA Group Number: NA
--- OUTSIDE RECORDS SUMMARY | 2024-12-28 18:28 | XMS_ITS | Continuity of Care Document ---
Author Organization [facility] Address [address] [place] [address]- Care Team Providers Care Finance And Administration Manager Name Role Phone [place] Greta BEAULIEU Primary Care Physician [phone] [place] [facility] [place]/24 [facility] [address] [place], [place] [phone] Encounter Type: Triage Allergies, Adverse Reactions, Alerts [...] 14 09/14/08 Give n 1Result Comment: MFD: [place] 2Result Comment: [09/11/2015] VIS in [place] given With pastoral counselor Ani 3Result Comment: [10/08/2014] fluarix trivalent 14-15 [...] Refills, Maintenance, 11/15/24 8:30:00 AM EST, Solution, [facility], Partial fill upon patient request [...] PM EST, Aerosol, Route to Pharmacy Electronically, [id number],[facility]/pharmacy #0488, 155, cm, 10/12/24 13:41:00 EST, [...] Replace Required Details, Route to Pharmacy Electronically, [id number], [facility] ST[facility] 13238, 151.5, cm, 12/19/24 14:35:00 EST, Height, 73, [...] 4 Refills, Maintenance, 01/24/24 5:18:00 PM EST, [facility]/pharmacy #0488, 90, TAKE 1 TABLET BY [...] Refills, Maintenance, 08/10/24 11:46:00 AM EDT, Cream, [facility]/pharmacy #[id number], Partial fill upon patient request [...] Nasal, Full or Pillow Mask and parts [id number] Humidifier length of need Lifetime 99 months [...] patches after 12 hours, prn back pain, [place], # 60 patch, 5 Refills, Maintenance, 10/11/24 2:20:00 PM EST, Film, [id number], Partial fill upon patient request if the prescription is for a schedule II opioid drug., 2 patch Topically Daily,x30 days,Instr:remove patches after 12 hours, prn back pain, [place], 155, cm, 10/11/24 13:44:00 EST, Height, 79, [...] Mouth, 2 times a day, with meals, jordanian label, # 180 tablet, 3 Refills, Maintenance, 10/11/24 2:18:00 PM EST, Tablet, [facility]/pharmacy #0488, 155, cm, 10/11/24 13:44:00 EST, Height, 79, kg, 09/20/24 19:29:00 EDT, Dry Weight Start Date: 10/11/24 Stop Date: 10/06/25 Status: Ordered Quantity: 180.0 Unit: tablet Repeat number: 4 metoprolol 25 mg oral tablet, extended release 25 mg, 1, tablet, By Mouth, Daily, # 90 tablet, Refills 3, Tot. Refills 3, Maintenance, 11/27/24 3:44:00 PM EST, Route to Pharmacy Electronically, [facility]/pharmacy #[id number], Partial fill upon patient request [...] 2 Refills, Maintenance, 05/19/24 3:58:00 PM EDT, [facility]/pharmacy #0488, 157, cm, 05/16/24 16:05:00 EDT, Height, 77, kg, 03/25/24 19:43:00 EDT, Dry Weight Start Date: 05/19/24 Status: Ordered Quantity: 30.0 Unit: tablet Repeat number: 3 nabumetone 500 mg oral tablet See Instructions, TOME VERA TABLETA POR VIA ORAL DOS VECES AL KATE CON ALIMENTO CUANDO SEA NECESARIO PARA EL DOLOR, # 60 tablet, 1 Refills, Maintenance, 10/11/24 2:16:00 PM EST, [facility]/pharmacy #[id number], 155, cm, 10/11/24 13:44:00 EST, [...] times a day before meals, instructions in jordanian 2 units for sugar 150- 199 5 [...] mL, 1 Refills,Maintenance, 11/21/24 9:12:00 AM EST, [facility]/pharmacy #[id number], Partial fill upon patient request [...] 3 Refills, Maintenance, 11/21/24 8:20:00 AM EST, [facility] STORE 97384, 155, cm, 11/15/24 7:26:00 EST, Height, 73, kg, 11/14/24 10:43:00 EST, Dry Weight Start Date: 11/21/24 Status: Ordered Quantity: 180.0 Unit: capsule Repeat number: 1 ondansetron 4 mg oral tablet 1 tablet = 4 mg, By Mouth, Every 8 hours, # 12 tablet, 0 Refills, Maintenance, 03/07/24 1:20:00 PM EDT, Tablet, [facility]/pharmacy #[id number], Partial fill upon patient request if the prescription is for a schedule II opioid drug., 159, cm, 03/03/24 8:08:00 EDT, Height, 75, kg, 03/03/24 8:08:00 EDT, Dry Weight Start Date: 03/07/24 Status: Ordered Quantity: 12.0 Unit: tablet Repeat number: 1 Pen [place], 31 G x 5 mm BD Ultra [...] 5 Refills, Maintenance, 10/11/24 2:16:00 PM EST, [facility]/pharmacy #0488, 30, TOME DOSTABLETAS POR VIA ORAL AL ACOSTARSE CUANDO SEA NECESARIO PARA LA CONSTIPACION, 155, cm, 10/11/24 13:44:00 EST, Height, 79, kg, 09/20/24 19:29:00 EDT, Dry Weight Start Date: 10/11/24 Status: Ordered Quantity: 60.0 Unit: tablet Repeat number: 6 simvastatin 20 mg oral tablet 20 mg, 1, tablet, By Mouth, Daily at bedtime, for cholesterol, [place] label, # 90 tablet, Refills 4, Tot. Refills 4, Maintenance, 10/11/24 2:19:00 PM EST, Route to Pharmacy Electronically, [facility]/pharmacy #[id number], 155, cm, 10/11/24 13:44:00 EST, [...] mg, By Mouth, Daily, please label in jordanian, # 90 each, 4 Refills, Maintenance, 10/11/24 2:17:00 PM EST, Tablet, [facility]/pharmacy #0488, 155, cm, 10/11/24 13:44:00 EST, [...] Replace Required Details, Route to Pharmacy Electronically, [id number], [facility] 8[facility]74, 155, cm, 10/12/24 13:41:00 EST, Height, 79, kg, 09/20/24 19:29:00 EDT, Dry Weight Start Date: 10/23/24 Status: Ordered Quantity: 10.2 Unit: each Repeat number: 1 Tylenol Extra Strength 500 mg oral tablet 2 tablet = 1,000 mg, By Mouth, 4 times a day, PRN as needed for pain, # 100 tablet, 0 Refills, Maintenance, 01/12/23 8:36:00 AM EST, Tablet, [facility]/pharmacy #[id number], Partial fill upon patient request [...] Osteoarthritis Confirmed Active Palpitations 3 Confirmed Active *BHN/CCA/[facility] Care/Casket Assembler Metal-Shazia Henry-[phone]/Health fdc, active care coordination Confirmed Active Polyarthritis Confirmed [...] Team Personnel Name: Fauzia Lynne RN Position: [facility] AMB Nurse Member Role: Primary Care Nurse Name: Margot Turner RN Position: [facility] RN Member Role: Primary Care Nurse Name: More Marie RN Position: [facility] RN Member Role: Primary Care Nurse Name: Rony Jackson RN Position: [facility] RN Member Role: Primary Care Nurse Name: Selena Walker RN Position: [facility] RN Member Role: Primary Care Nurse Name: Gloria Tello RN Position: [facility] RN Member Role: Primary Care Nurse Name: Alice Maloney RN Position: [facility] SN RN Member Role: Primary Care Nurse Name: Josefina Tolliver RN Position: [facility] RN Member Role: Primary Care Nurse Name: Kerry Fonseca RN Position: [facility] RN Member Role: Primary Care Nurse Name: Greta Gomez NP Position: [facility] PCO Associate Professional Member Role: PCP Address: [address] [place] [address] Telecom: Name: Niki Kelly RN Position: [facility] RN Member Role: Primary Care Nurse Name: Felipe Wylie RN Position: [facility] RN Member Role: Primary Care Nurse Name: Laya Chandra RN Position: [facility] RN Member Role: Primary Care Nurse Name: Myrna Boyd RN Position: [facility] SN Supervisor Dry Cell Assembly Member Role: Primary Care Nurse Name: Jace Beard RN Position: [facility] RN Member Role: Primary Care Nurse Name: Gabbi Contreras RN Position: [facility] ED RN W/OE and Tasks Member Role: Primary Care Nurse Name: Elsie Maria RN Position: [facility] RN Member Role: Primary Care Nurse Name: Jace Cosme RN Position: [facility] RN Member Role: Primary Care Nurse Name: Lynne Fabian RN Position: [facility] RN Member Role: Primary Care Nurse Name: Desiree Olivares RN Position: [facility] RN Member Role: Primary Care Nurse Care Team Related Persons Name: NINA CADE Name: WIL DALY Name: KELLI DALY Insurance Providers Guarantor name: CHAVEZ PRITCHETT Health Plan Information #: 1 Payer: [facility] ALLIANCE/ONE CARE Member Number: NA Policy Number: NA Group Number: NA
--- OUTSIDE RECORDS SUMMARY | 2024-12-28 18:28 | XMS_ITS | Continuity of Care Document ---
Author Organization [facility] ter Address [address] [place] [id number] Care Team Providers Care Physical Chemist Name Role Phone Patricia Greta BEAULIEU Primary Care Physician Encounter [facility] [place] Date(s): 11/14/24 - 12/14/[address] [address] [place] Attending Physician: Not on Staff, Attending MD Admitting Physician: Not on Staff, Admitting MD Referring Physician: Not on Staff, Referring MD Encounter Type: Pre-Outpt Allergies, Adverse Reactions, Alerts Substance Criticality Severity [...] 14 09/14/08 Give n 1Result Comment: MFD: [employer]ale Snacks, Smarp. 2Result Comment: [09/11/2015] VIS in Guyanese given With pediatric psychiatrist Ani 3Result Comment: [10/08/2014] fluarix trivalent 14-15 [...] Refills, Maintenance, 11/15/24 8:30:00 AM EST, Solution, [facility], Partial fill upon patient [...] PM EST, Aerosol, Route to Pharmacy Electronically, [id number],[facility]/pharmacy #[id number], 155, cm, 10/12/24 13:41:00 EST, Height, [...] Replace Required Details, Route to Pharmacy Electronically, [id number], [id number], 155, cm, 09/20/24 19:29:00 EDT, Height, 79, [...] Refills, Maintenance, 01/24/24 5:18:00 PM EST, [facility]/pharmacy #[id number], 90, TAKE 1 TABLET BY MOUTH [...] Maintenance, 08/10/24 11:46:00 AM EDT, Cream, [facility]/pharmacy #[id number], Partial fill upon patient request if [...] Nasal, Full or Pillow Mask and parts [id number] Humidifier length of need Lifetime 99 months [...] capsule, 1 Refills, 10/11/24 2:16:00 PM EST, [facility]/pharmacy #[id number], 155, cm, 10/11/24 13:44:00 EST, Height, 79, kg, 09/20/24 19:29:00 EDT, Dry Weight Start Date: 10/11/24 Status: Ordered Quantity: 40.0 Unit: capsule Repeat number: 2 estradiol 0.1 mg/g vaginal cream See Instructions, Apply a pea sized dab to vulva twice per week for maintenance therapy, # 42.5 Gm,4 Refills, Maintenance, 12/14/24 10:15:00 PM EST, [facility]/pharmacy #[id number], Partial fill upon patient request if [...] patches after 12 hours, prn back pain, Guyanese, # 60 patch, 5 Refills, Maintenance, 10/11/24 2:20:00 PM EST, Film, [id number], Partial fill upon patient request if the prescription is for a schedule II opioid drug., 2 patch Topically Daily,x30 days,Instr:remove patches after 12 hours, prn back pain, Guyanese, 155, cm, 10/11/24 13:44:00 EST, Height, 79, [...] Refills, Maintenance, 09/26/24 10:31:00 AM EDT, Tablet, [facility]/pharmacy #[id number], Partial fill upon patient request if [...] Mouth, 2 times a day, with meals, german label, # 180 tablet, 3 Refills, Maintenance, 10/11/24 2:18:00 PM EST, Tablet, [facility]/pharmacy #[id number], 155, cm, 10/11/24 13:44:00 EST, Height, 79, kg, 09/20/24 19:29:00 EDT, Dry Weight Start Date: 10/11/24 Stop Date: 10/06/25 Status: Ordered Quantity: 180.0 Unit: tablet Repeat number: 4 metoprolol 25 mg oral tablet, extended release 25 mg, 1, tablet, By Mouth, Daily, # 90 tablet, Refills 3, Tot. Refills 3, Maintenance, 11/27/24 3:44:00 PM EST, Route to Pharmacy Electronically, [facility]/pharmacy #[id number], Partial fill upon patient request if [...] Refills, Maintenance, 05/19/24 3:58:00 PM EDT, [facility]/pharmacy #[id number], 157, cm, 05/16/24 16:05:00 EDT, Height, 77, kg, 03/25/24 19:43:00 EDT, Dry Weight Start Date: 05/19/24 Status: Ordered Quantity: 30.0 Unit: tablet Repeat number: 3 nabumetone 500 mg oral tablet See Instructions, TOME VERA TABLETA POR VIA ORAL DOS VECES AL KATE CON ALIMENTO CUANDO SEA NECESARIO PARA EL DOLOR, # 60 tablet, 1 Refills, Maintenance, 10/11/24 2:16:00 PM EST, [facility]/pharmacy #[id number], 155, cm, 10/11/24 13:44:00 EST, Height, [...] times a day before meals, instructions in german 2 units for sugar 150- 199 5 units for sugar 200 - 249 8 units for sugar 250 - 299 11 units for sugar 300 - 349 14 units for sugar 350 - 399, # 15 mL, 6 Refills, Maintenance, 11/27/24 3:50:00 PM EST, Solution, [facility]/pharmacy #[id number], Partial fill upon patient request if [...] 1 Refills,Maintenance, 11/21/24 9:12:00 AM EST, [facility]/pharmacy #[id number], Partial fill upon patient request if [...] Maintenance, 11/21/24 8:20:00 AM EST, [id number], 155, cm, 11/15/24 7:26:00 EST, Height, 73, kg, 11/14/24 10:43:00 EST, Dry Weight Start Date: 11/21/24 Status: Ordered Quantity: 180.0 Unit: capsule Repeat number: 1 ondansetron 4 mg oral tablet 1 tablet = 4 mg, By Mouth, Every 8 hours, # 12 tablet, 0 Refills, Maintenance, 03/07/24 1:20:00 PM EDT, Tablet, [facility]/pharmacy #[id number], Partial fill upon patient request if the prescription is for a schedule II opioid drug., 159, cm, 03/03/24 8:08:00 EDT, Height, 75, kg, 03/03/24 8:08:00 EDT, Dry Weight Start Date: 03/07/24 Status: Ordered Quantity: 12.0 Unit: tablet Repeat number: 1 Pen [place], 31 G x 5 mm BD Ultra [...] Refills, Maintenance, 10/11/24 2:16:00 PM EST, [facility]/pharmacy #[id number], 30, TOME DOSTABLETAS POR VIA ORAL AL ACOSTARSE CUANDO SEA NECESARIO PARA LA CONSTIPACION, 155, cm, 10/11/24 13:44:00 EST, Height, 79, kg, 09/20/24 19:29:00 EDT, Dry Weight Start Date: 10/11/24 Status: Ordered Quantity: 60.0 Unit: tablet Repeat number: 6 simvastatin 20 mg oral tablet 20 mg, 1, tablet, By Mouth, Daily at bedtime, for cholesterol, Guyanese label, # 90 tablet, Refills 4, Tot. Refills 4, Maintenance, 10/11/24 2:19:00 PM EST, Route to Pharmacy Electronically, [facility]/pharmacy #[id number], 155, cm, 10/11/24 13:44:00 EST, Height, [...] mg, By Mouth, Daily, please label in german, # 90 each, 4 Refills, Maintenance, 10/11/24 2:17:00 PM EST, Tablet, [facility]/pharmacy #[id number], 155, cm, 10/11/24 13:44:00 EST, Height, [...] Replace Required Details, Route to Pharmacy Electronically, [id number], [id number], 155, cm, 10/12/24 13:41:00 EST, Height, 79, kg, 09/20/24 19:29:00 EDT, Dry Weight Start Date: 10/23/24 Status: Ordered Quantity: 10.2 Unit: each Repeat number: 1 Tylenol Extra Strength 500 mg oral tablet 2 tablet = 1,000 mg, By Mouth, 4 times a day, PRN as needed for pain, # 100 tablet, 0 Refills, Maintenance, 01/12/23 8:36:00 AM EST, Tablet, [facility]/pharmacy #[id number], Partial fill upon patient request if the prescription is for a schedule II opioid drug., 155, cm, 01/07/23 13:57:00 EST, Height, 76, kg, 04/28/22 20:47:00 EDT, Dry Weight Start Date: 01/12/23 Status: Ordered Quantity: 100.0 Unit: tablet Repeat number: 1 venlafaxine 37.5 mg oral capsule, extended release TOME VERA ZAMARRIPA TODOS LOS D EN LA CHRISTINE [...] Osteoarthritis Confirmed Active Palpitations 3 Confirmed Active *[facility] Care/Patternmaker Pressure Cast-Shazia Henry-[phone] .[phone]/Health half-way, active care coordination Confirmed Active Polyarthritis Confirmed [...] Team Personnel Name: Fauzia Lynne RN Position: [facility] AMB Nurse Member Role: Primary Care Nurse Name: Margot Turner RN Position: [facility] RN Member Role: Primary Care Nurse Name: More Marie RN Position: [facility] RN Member Role: Primary Care Nurse Name: Rony Jackson RN Position: [facility] RN Member Role: Primary Care Nurse Name: Selena Walker RN Position: [facility] RN Member Role: Primary Care Nurse Name: Gloria Tello RN Position: [facility] RN Member Role: Primary Care Nurse Name: Alice Maloney RN Position: [facility] RN Member Role: Primary Care Nurse Name: Josefina Tolliver RN Position: [facility] RN Member Role: Primary Care Nurse Name: Kerry Fonseca RN Position: [facility] RN Member Role: Primary Care Nurse Name: Greta Gomez NP Position: [facility] PCO Associate Professional Member Role: PCP Address: [address] [place] [id number] [place] Telecom: Name: Niki Kelly RN Position: [facility] RN Member Role: Primary Care Nurse Name: Felipe Wylie RN Position: [facility] RN Member Role: Primary Care Nurse Name: Laya Chandra RN Position: [facility] RN Member Role: Primary Care Nurse Name: Myrna Boyd RN Position: [facility] SN [employer] Member Role: Primary Care Nurse Name: Jace Beard RN Position: [facility] RN Member Role: Primary Care Nurse Name: Gabbi Contreras RN Position: [facility] ED RN W/OE and Tasks Member Role: Primary Care Nurse Name: Elsie Maria RN Position: [facility] RN Member Role: Primary Care Nurse Name: Jace Cosme RN Position: [facility] RN Member Role: Primary Care Nurse Name: Lynne Fabian RN Position: [facility] RN Member Role: Primary Care Nurse Name: Desiree Olivares RN Position: [facility] RN Member Role: Primary Care Nurse Care Team Related Persons Name: NINA CADE Name: WIL DALY Name: KELLI DALY Insurance Providers Guarantor name: CHAVEZ YARELY Health Plan Information #: 1 Payer: [facility] [employer] Member Number: NA Policy Number: NA Group Number: NA
[2024-12-31 09:28] LABS: Prot Elec - Albumin 3.8 g/dL (3.8-4.8); Prot Elec - Alpha1 0.3 g/dL (0.2-0.3); Prot Elec - Alpha2 0.7 g/dL (0.5-0.9); Prot Elec - Beta 1 0.5 g/dL (0.4-0.6); Prot Elec - Beta 2 0.4 g/dL (0.2-0.5); Prot Elec - Gamma 0.8 g/dL (0.8-1.7); Prot Elec - Total Protein 6.4 g/dL (6.1-8.1)
== END 2024-12-28 13:33 | disposition home or self-care (01) ==
LOC: HO.HKASLDS 13:32
PROVIDERS: PCP Nurse Practitioner Family; Visit Provider Internal Medicine Rheumatology
DX: M35.01 Sjogren syndrome with keratoconjunctivitis (principal); R74.01 Elevation of levels of liver transaminase levels; D72.829 Elevated white blood cell count, unspecified; R29.898 Other symptoms and signs involving the musculoskeletal system; M25.561 Pain in right knee; M25.562 Pain in left knee; G89.29 Other chronic pain; M79.7 Fibromyalgia
CPT/HCPCS: 36415; 84165; 84450; 84460; 85025; 99212

== ENCOUNTER 2025-05-31 13:40 | Outpatient (AMB) | payer MEDICARE, SELFPAY ==
--- OUTSIDE RECORDS SUMMARY | 2025-05-30 23:59 | XMS_ITS | Continuity of Care Document ---
Author Organization [facility] ter Address [address] [place] [id number]- Care Team Providers Care Retail Special Event Associate Name Role Phone Patricia Greta BEAULIEU Primary Care Physician [phone] Encounter [facility] Date(s): 12/15/24 - 05/30/[address] [address] Attending Physician: Annmarie Colvin MD Admitting Physician: Annmarie Colvin MD Referring Physician: Annmarie Colvin MD Encounter Type: Pre-Outpt Allergies, Adverse Reactions, [...] 14 09/14/08 Give n 1Result Comment: MFD: [email or web address], [employer] [facility] [employer] 2Result Comment: [09/11/2015] VIS in Sammarinese given With electrophysiologist Ani 3Result Comment: [10/08/2014] fluarix trivalent 14-15 [...] Refills, Maintenance, 11/15/24 8:30:00 AM EST, Solution, [facility], Partial fill upon patient request if the prescription is for a schedule II opioid drug., 155, cm, 11/15/24 7:26:00 EST, Height, 73, kg, 11/14/24 10:43:00 EST, Dry Weight Start Date: 11/15/24 Stop Date: 12/15/24 Status: Ordered Quantity: 30.0 Unit: each Repeat number: 1 albuterol CFC free 90 mcg/inh inhalation aerosol 2, puffs, Inhalation, 4 times a day, PRN, # 3 each, Refills 3, Tot. Refills 3, Maintenance, 03/29/25 1:13:00 PM EDT, Aerosol, Route to Pharmacy Electronically, [id number], [facility] #[id number], 154, cm, 03/06/25 11:21:00 EDT, Height, 76, kg, 02/26/25 15:37:00 EDT, Dry Weight Start Date: 03/29/25 Status: Ordered Quantity: 3.0 Unit: each Repeat number: 4 albuterol-ipratropium 3 mg-0.5 mg/3 ml inhalation solution 3 mL, Inhalation, 4 times a day, PRN NEEDED FOR WHEEZING/SHORTNESS OF BREATH, # 360 mL, 3 Refills, Maintenance, 03/02/25 8:42:00 AM EDT, [id number], 90, INHALE 3 ML BAND NEBULIZER 4 TIMES A DAYAS NEEDED FOR WHEEZING/SHORTNESS OF BREATH, 154, cm, 02/26/25 15:37:00 EDT, Height, 76, kg, 02/26/25 15:37:00 EDT, Dry Weight Start Date: 03/02/25 Status: Ordered Quantity: 360.0 Unit: mL Repeat number: 1 Alcohol Pads See Instructions, # 1 each, [...] Date: 03/20/22 Status: Ordered Repeat number: 1 budesonide 0.5 mg/2 mL inhalation suspension See Instructions, TAKE 2 ML BY NEBULIZATION DOS VECES AL KATE, # 360 mL, Refills 0, Maintenance, 03/19/25 9:20:00 AM EDT, Instructions Replace Required Details, Route to Pharmacy Electronically, [id number], [id number], 154, cm, 03/06/25 11:21:00 EDT, Height, 76, kg, 02/26/25 15:37:00 EDT, Dry Weight Start Date: 03/19/25 Status: Ordered Quantity: 360.0 Unit: mL Repeat [...] MEALS, # 180 tablet, 4 Refills, Maintenance, 05/16/25 4:45:00 PM EDT, [facility] [id number], 90, TAKE 1 TABLET BY MOUTH 2 TIMES A DAY FOR 90 DAYS WITH MEALS, 155, cm, 05/04/25 13:39:00 EDT, Height, 77.5, kg, 04/08/25 18:13:00 EDT, DryWeight Start Date: 05/16/25 Status: Ordered Quantity: 180.0 Unit: tablet Repeat number: 1 capsaicin 0.025% topical cream 1 application, Topically, 2 times a day, # 60 Gm, 3 Refills, Maintenance, 08/10/24 11:46:00 AM EDT, Cream, [id number], Partial fill upon patient request if the prescription is for a schedule II opioid drug., 1 application Topically 2 times a day, 155, cm, 08/10/24 11:10:00 EDT, Height, 82, kg, 07/31/24 23:23:00 EDT, Dry Weight Start Date: 08/10/24 Status: Ordered Quantity: 60.0 Unit: g Repeat number: 4 Indications: Spondylolysis, cervical region; clonazePAM 0.5 mg oral tablet 1 tablet [...] Nasal, Full or Pillow Mask and parts [id number] Humidifier length of need Lifetime 99 months [...] Quantity: 1.0 Unit: each Repeat number: 12 diclofenac 1% topical gel 1 application, Topically, 2 times a day, # 100 Gm, 2 Refills, Maintenance, 03/06/25 11:48:00 AM EDT, Gel, [id number], Partial fill upon patient request if the prescription is for a schedule II opioid drug., 154, cm, 03/06/25 11:21:00 EDT, Height, 76, kg, 02/26/25 15:37:00 EDT, Dry Weight Start Date: 03/06/25 Status: Ordered Quantity: 100.0 Unit: g Repeat number: 3 dicyclomine 20 mg oral tablet 1 tablet = 20 mg, By Mouth, 4 times a day, prn pain, changed to 20 mg from 10, # 40 tablet, 1 Refills, Maintenance, 04/18/25 12:22:00 PM EDT, [id number], Partial fill upon patient request if the prescription is for a schedule II opioid drug., 155, cm, 04/12/25 10:58:00 EDT, Height, 77.5, kg,04/08/25 18:13:00 EDT, Dry Weight Start Date: 04/18/25 Status: Ordered Quantity: 40.0 Unit: tablet Repeat number: 2 estradiol 0.1 mg/g vaginal [...] Quantity: 42.5 Unit: g Repeat number: 5 Indications: Other specified menopausal and perimenopausal disorders; famotidine 10 mg oral tablet 1 tablet = 10 mg, By Mouth, 2 times a day, 1 hour before meals. (Sammarinese Label), # 60 tablet, 1 Refills, Maintenance, 05/04/25 2:42:00 PM EDT, Tablet, [facility]/pharm[facility] #[id number], Partial fill upon patient request if the prescription is for a schedule II opioid drug., 155, cm, 05/04/25 13:39:00 EDT, Height, 77.5, kg, 04/08/25 18:13:00 EDT, Dry Weight Start Date: 05/04/25 Stop Date: 07/03/25 Status: Ordered Quantity: 60.0 Unit: tablet Repeat number: 2 Indications: Irritable bowel syndrome without diarrhea; Heartburn; Freestyle Lite Lancets See Instructions, # 100 [...] Instructions, # 50 Unknown, 11 Refills, Maintenance, USED TO CHECK BLOOD SUGAR ONCE DAILY, 01/19/25 5:49:00 PM EST, 151.5, cm, 01/11/25 15:00:00 EST, Height, 73, kg, 11/14/24 10:43:00 EST, Dry Weight Start Date: 01/19/25 Status: Ordered Quantity: 50.0 Unit: Unknown Repeat number: 1 FREESTYLE LITE TEST STRIP [...] Quantity: 238.0 Unit: g Repeat number: 12 guaiFENesin 600 mg oral tablet, extended release 1 tablet = 600 mg, By Mouth, Every 12 hours, for 14 days, Please label in marshallese Not to exceed 2.4grams/day with fluids, # 28 tablet, 0 Refills, Acute 06/04/25 10:17:00 AM EDT, 05/21/25 10:17:00 AM EDT, ER Tablet, [facility] #[id number], Partial fill upon patient request if the prescription is for a schedule II opioid drug., 155, cm, 05/21/25 9:23:00 EDT, Height, 77.5, kg, 05/17/25 14:10:00 EDT, Dry Weight Start Date: 05/21/25 Stop Date: 06/04/25 Status: Ordered Quantity: 28.0 Unit: tablet Repeat number: 1 Indications: Cough, unspecified; guaiFENesin 600 mg oral tablet, extended release 2 tablet = 1,200 mg, By Mouth, Every 12 hours, for 14 days, Please label in marshallese Not to exceed 2.4 grams/day with fluids, # 56 tablet, 0 Refills, Acute 06/18/25 10:17:00 AM EDT, 06/04/25 10:17:00 AM EDT, ER Tablet, [facility]/pharmacy #[id number], Partial fill upon patient request if the prescription is for a schedule II opioid drug., 155, cm, 05/21/25 9:23:00 EDT, Height, 77.5, kg, 05/17/25 14:10:00 EDT, DryWeight Start Date: 06/04/25 Stop Date: 06/18/25 Status: Ordered Quantity: 56.0 Unit: tablet Repeat number: 1 Indications: Cough, unspecified; hydrOXYzine hydrochloride 25 mg oral tablet See [...] Quantity: 150.0 Unit: each Repeat number: 12 lactulose 10 gm/15 ml oral syrup 15 mL = 10 Gm, By Mouth, Daily, prn severe constipation, # 90 mL, 0 Refills, Maintenance, 05/04/25 2:52:00 PM EDT, [id number], Partial fill upon patient request if the prescription is for a schedule II opioid drug., 15 mL By Mouth Daily,Instr:prn severe constipation, 155, cm, 05/04/25 13:39:00 EDT, Height, 77.5, kg, 04/08/25 18:13:00 EDT, Dry Weight Start Date: 05/04/25 Status: Ordered Quantity: 90.0 Unit: mL Repeat number: 1 Lantus Solostar Pen 100 units/mL subcutaneous solution [...] Quantity: 10.0 Unit: mL Repeat number: 7 levocetirizine 5 mg oral tablet 1 tablet = 5 mg, By Mouth, Daily, 0 Refills, Maintenance, 03/20/22 8:26:00 PM EDT, Partial fill uponpatient request if the prescription is for a schedule II opioid drug. Start Date: 03/20/22 Status: Ordered Repeat number: 1 Lidoderm 5% film 2 patch, Topically, Daily, remove patches after 12 hours, prn back pain, Sammarinese, # 60 patch, 5 Refills, Maintenance, 04/09/25 2:20:00 PM EDT, Film, [id number], Partial fill upon patient request if the prescription is for a schedule II opioid drug., 2 patch Topically Daily,x30 days,Instr:remove patches after 12 hours, prn back pain, Sammarinese, 154, cm, 03/06/25 11:21:00 EDT, Height, 76, kg, 02/26/25 15:37:00 EDT, Dry Weight Start Date: 04/09/25 Stop Date: 10/06/25 Status: Ordered Quantity: 60.0 Unit: patch Repeat number: 6 Indications: Dorsalgia, unspecified; linaclotide 145 mcg oral capsule 1 capsule [...] Quantity: 30.0 Unit: capsule Repeat number: 3 melatonin 10 mg oral tablet 1 tablet [...] Mouth, 2 times a day, with meals, marshallese label, # 180 tablet, 3 Refills, Maintenance, 10/11/24 2:18:00 PM EST, Tablet, [facility]/pharm[facility] #[id number], 155, cm, 10/11/24 13:44:00 EST, Height, 79, kg, 09/20/24 19:29:00 EDT, Dry Weight Start Date: 10/11/24 Stop Date: 10/06/25 Status: Ordered Quantity: 180.0 Unit: tablet Repeat number: 4 metoprolol 25 mg oral tablet, extended release 25 mg, 1, tablet, By Mouth, Daily, # 90 tablet, Refills 3, Tot. Refills 3, Maintenance, 11/27/24 3:44:00 PM EST, Route to Pharmacy Electronically, [facility]/pharmacy #[id number], Partial fill upon patient [...] 2 Refills, Maintenance, 05/19/24 3:58:00 PM EDT, [facility]/pharmacy #[id number], 157, cm, 05/16/24 16:05:00 EDT, Height, 77, kg, 03/25/24 19:43:00 EDT, Dry Weight Start Date: 05/19/24 Status: Ordered Quantity: 30.0 Unit: tablet Repeat number: 3 nabumetone 500 mg oral tablet See Instructions, TOME VERA TABLETA POR VIA ORAL DOS VECES AL KATE CON ALIMENTO CUANDO SEA NECESARIO PARA EL DOLOR, # 60 tablet, 2 Refills, Maintenance, 03/06/25 11:46:00 AM EDT, [facility]/pharm[facility] #[id number], 154,cm, 03/06/25 11:21:00 EDT, Height, 76, kg, 02/26/25 15:37:00 EDT, Dry Weight Start Date: 03/06/25 Status: Ordered Quantity: 60.0 Unit: tablet Repeat number: 3 nebulizer supplies nebulizer supplies, See Instructions, # [...] 1.0 Unit: each Repeat number: 12 NovoLOG PenFill 100 units/mL injectable solution See Instructions, Subcutaneous Infusion 3 times a day before meals, sliding scale BS 150-200 2 units BS 201-250 4 units BS 251-300 6 units BS 301-350 8 units BS over 350 10 units, # 15 mL, 1 Refills,Maintenance, 11/21/24 9:12:00 AM EST, [facility]/pharmacy #[id number], Partial fill upon patient [...] 3 Refills, Maintenance, 11/21/24 8:20:00 AM EST, [id number], 155, cm, 11/15/24 7:26:00 EST, Height, 73, kg, 11/14/24 10:43:00 EST, Dry Weight Start Date: 11/21/24 Status: Ordered Quantity: 180.0 Unit: capsule Repeat number: 1 ondansetron 4 mg oral tablet 1 tablet, By Mouth, Every 8 hours, CUANDO SEA NECESARIO NAUSEA AND VOMITING., # 10 tablet, 0 Refills, Maintenance, 04/12/25 11:17:00 AM EDT, [facility]/pharmacy #[id number], 155, cm, 04/12/25 10:58:00 EDT, Height,77.5, kg, 04/08/25 18:13:00 EDT, Dry Weight Start Date: 04/12/25 Status: Ordered Quantity: 10.0 Unit: tablet Repeat number: 1 Pen [place], 31 G x 5 mm BD Ultra [...] Date: 03/22/24 Status: Ordered Repeat number: 1 predniSONE 10 mg oral tablet See Instructions, 4 tabs/d for 2d then 3 tabs/d for 2d then 2 tabs/d for 2d then 1 tab/d for 4d then stop, # 22 tablet, 0 Refills, Maintenance, 05/16/25 5:13:00 PM EDT, Tablet, [facility]/pharmacy #[id number], Partial fill upon patient request if the prescription is for a schedule II opioid drug., 155, cm, 05/04/25 13:39:00 EDT, Height, 77.5, kg, 04/08/25 18:13:00 EDT, Dry Weight Start Date: 05/16/25 Status: Ordered Quantity: 22.0 Unit: tablet Repeat number: 1 Reusable bedpads Reusable bedpads, [...] 5 Refills, Maintenance, 10/11/24 2:16:00 PM EST, [id number], 30, TOME DOSTABLETAS POR VIA ORAL AL ACOSTARSE CUANDO SEA NECESARIO PARA LA CONSTIPACION, 155, cm, 10/11/24 13:44:00 EST, Height, 79, kg, 09/20/24 19:29:00 EDT, Dry Weight Start Date: 10/11/24 Status: Ordered Quantity: 60.0 Unit: tablet Repeat number: 6 simvastatin 20 mg oral tablet 20 mg, 1, tablet, By Mouth, Daily at bedtime, for cholesterol, Sammarinese label, # 90 tablet, Refills 4, Tot. Refills 4, Maintenance, 10/11/24 2:19:00 PM EST, Route to Pharmacy Electronically, [facility]/pharmacy #[id number], 155, cm, 10/11/24 13:44:00 EST, Height, 79, kg, 09/20/24 19:29:00 EDT, Dry Weight Start Date: 10/11/24 Stop Date: 01/04/26 Status: Ordered Quantity: 90.0 Unit: tablet Repeat number: 5 Singulair 10 mg oral tablet 10 mg, 1, tablet, By Mouth, Daily at bedtime, # 30 tablet, Refills 0, Tot. Refills 0, Maintenance, 04/04/25 5:14:00 PM EDT, Route to Pharmacy Electronically, [facility]/pharmacy #[id number], Partial fill upon patient request if the prescription is for a schedule II opioid drug., 154, cm, 03/06/25 11:21:00 EDT, Height, 76, kg, 02/26/25 15:37:00 EDT, Dry Weight Start Date: 04/04/25 Status: Ordered Quantity: 30.0 Unit: tablet Repeat number: 1 Singulair 10 mg oral tablet 10 mg, 1, tablet, By Mouth, Daily in PM, # 30 tablet, Refills 6, Tot. Refills 6, Maintenance, 04/04/25 5:15:00 PM EDT, Route to Pharmacy Electronically, [facility]/pharmacy #[id number], Partial fill upon patient request if the prescription is for a schedule II opioid drug., 154, cm, 03/06/25 11:21:00 EDT, Height,76, kg, 02/26/25 15:37:00 EDT, Dry Weight Start Date: 04/04/25 Stop Date: 10/31/25 Status: Ordered Quantity: 30.0 Unit: tablet Repeat number: 7 Symbicort 160mcg/4.5mcg Inhaler See Instructions, INHALE 2 PUFFS 2 TIMES A DAY, USE WITH SPACE CHAMBER. RINSE MOUTH AND THROAT AFTER USE, J44.9, # 3 each, Refills 3, Tot. Refills 3, Maintenance, 03/29/25 1:13:00 PM EDT, Instructions Replace Required Details, Route to Pharmacy Electronically, [id number], [facility]/pharmacy #[id number], 154, cm, 03/06/25 11:21:00 EDT, Height, 76, kg, 02/26/25 15:37:00 EDT, Dry Weight Start Date: 03/29/25 Status: Ordered Quantity: 3.0 Unit: each Repeat number: 4 Tylenol Extra Strength 500 mg oral tablet 2 tablet = 1,000 mg, By Mouth, 4 times a day, PRN as needed for pain, # 100 tablet, 3 Refills, Maintenance, 03/06/25 11:46:00 AM EDT, Tablet, [facility]/pharmacy #[id number], Partial fill upon patient request if the prescription is for a schedule II opioid drug., 154, cm, 03/06/25 11:21:00 EDT, Height, 76, kg, 02/26/25 15:37:00 EDT, Dry Weight Start Date: 03/06/25 Status: Ordered Quantity: 100.0 Unit: tablet Repeat number: 4 venlafaxine 37.5 mg oral capsule, extended release CHARLY ZAMARRIPA TODOS LOS D EN LA CHRISTINE [...] Vaginal atrophy Confirmed Active Chronic abdominal pain 1, 2 Confirmed Active COVID-19 3 Confirmed 05/05/22 Active Depression Confirmed Active DM [...] apnea Confirmed Active Osteoarthritis Confirmed Active Palpitations 4 Confirmed Active *[facility]/[employer] Header-Shazia Ivanlizzie [phone] [email or web address], active care coordination Confirmed Active Polyarthritis Confirmed Active Sjogren's syndrome Confirmed Active Stenosis of cervical spine Confirmed Active Hepatic steatosis Confirmed Active 1Had HAD 10 CTs of A&P 4192-[address] of abdomen and pelvic 2018- 2023 for abominal pain 3Problem added by Discern Expert 4work-up and cardiology consult on 30 d loop recorder Social History Social History Type Response Smoking Status Never (less than 100 in lifetime) entered on: 07/31/24 Sex Female Sex Representation Female (finding) Patient Care team information Care Team Personnel Name: Abdi Wood RN Position: [facility] RN Member Role: Primary Care Nurse Name: Fauzia Lynne RN Position: [facility] AMB Nurse Member Role: Primary Care Nurse Name: Margot Turner RN Position: [facility] RN Member Role: Primary Care Nurse Name: More Marie RN Position: [facility] RN Member Role: Primary Care Nurse Name: Rony Jackson RN Position: [facility] RN Member Role: Primary Care Nurse Name: Selena Walker RN Position: [facility] RN Member Role: Primary Care Nurse Name: Gloria Tello RN Position: [facility] RN Member Role: Primary Care Nurse Name: Alice Maloney RN Position: [facility] RN Member Role: Primary Care Nurse Name: Josefina Tolliver RN Position: [facility] RN Member Role: Primary Care Nurse Name: Kerry Fonseca RN Position: S RN Member Role: Primary Care Nurse Name: Greta Gomez NP Position: [facility] PCO Associate Professional Member Role: PCP Address: [address] [place] [address] Telecom: Name: Niki Kelly RN Position: [facility] RN Member Role: Primary Care Nurse Name: Felipe Wylie RN Position: [facility] RN Member Role: Primary Care Nurse Name: Laya Chandra RN Position: [facility] RN Member Role: Primary Care Nurse Name: Myrna Boyd RN Position: [facility] SN Channel Layer Member Role: Primary Care Nurse Name: Jace Beard RN Position: [facility] RN Member Role: Primary Care Nurse Name: Gabbi Contreras RN Position: [facility] ED RN W/OE and Tasks Member Role: Primary Care Nurse Name: Jace Cosme RN Position: [facility] RN Member Role: Primary Care Nurse Name: Lynne Fabian RN Position: [facility] RN Member Role: Primary Care Nurse Name: Desiree Olivares RN Position: [facility] RN Member Role: Primary Care Nurse Care Team Related Persons Name: NINA CADE Name: WIL DALY Name: KELLI DALY Insurance Providers Guarantor name: [facility] Plan Information #: 1 Payer: [facility] Payer Identifier: SERINA Member Number: [id number] Group Number: [id number] Subscriber Identifier: [id number] Relationship to Subscriber: self Coverage Type: Medicare Managed Care (Includes Medicare Advantage Plans) Coverage Verification Date: SERINA Telecom: Address:
--- NOTE | 2025-05-31 13:45 | MHC.OFFVIS ---
Vital Signs 05/31/25 13:50 Height 5 ft 1 in Weight 177 lb BMI 33.4 BP 100/70 Blood Pressure Location Lt brachial Pulse 67 Pulse Oximetry (%) 98 Oxygen Delivery Method Room Air Intake Visit Reasons: 3 mnts Intake Note: Patient presents for follow up on Sjogren's syndrome. Break Up Worker Required: Yes Break Up Worker Name: [email or web address] [id number] Information Interpreted: non-clinical & clinical Allergies morphine Adverse Reaction (Mild, Verified 05/31/25 13:52) Hypotension HPI HPI 3 mnts: Details: She continues to have joint pain. She is taking Plaquenil 200mg qd and not 400mg qd previously prescribed. She has neck pain and mid-lower back pain. Recently started PT prescribed by PCP. MS 1 hour +productive cough sometimes. No recent infections. Completed OT. She did not complete PT. Physical Exam Vital Signs: Last Vital Signs Pulse 67 05/31/25 13:50 BP 100/70 05/31/25 13:50 Pulse Ox 98 05/31/25 13:50 Oxygen Delivery Method Room Air 05/31/25 13:50 BMI result Body Mass Index 33.4 Const Other: General: Comfortable CVS: RRR Respiratory: clear to auscultation bilaterally. Good respiratory effort Skin: No lesions seen MSK: Tender to palpate MCPs, PIPs, wrists, elbows, shoulders. Weak international accounting manager strength bilateral. Shoulder abduction 120 degrees with limited full internal rotation and external rotation. Knee flexion is 90 degrees bilateral. Limited external rotation of bilateral hips. No synovitis present. Diffuse allodynia of all extremities present. Assessment & Plan Assessment & Plan (1) Sjogren syndrome: Comment: Sjogren syndrome associated inflammatory arthritis is not controlled on Plaquenil 200mg qd. She continues to have polyarthralgias. She did not increase Plaquenil dose due to polypharmacy. Uncontrolled pain from fibromyalgia is also contributing. She has not been able to follow up with PCP for management of fibromyalgia. She continues to take gabapentin 800 mg t.i.d. prescribed after her hospitalization October 2024. Rheumatology history: Biopsy-proven Sjogren's syndrome (minor salivary gland biopsy 01/2018) with inflammatory arthritis, elevated inflammatory markers, seronegative (MAUREEN, SSA/SSB, rheumatoid factor). Dry mouth improves with Biotene. Hydroxychloroquine started for inflammatory arthritis but it was discontinued after a few days due to worsening depression anxiety. She has tolerated Plaquenil 200 mg daily. Code(s): M35.00 - Sjogren syndrome, unspecified Category: Medical Qualifiers: Sjogren organ or system involvement: keratoconjunctivitis Qualified Code(s): M35.01 - Sjogren syndrome with keratoconjunctivitis Plan: Increase Plaquenil to 400 mg daily. Brand only. Labs for disease monitoring reviewed 10/2024, 11/2024 Labs for disease monitoring on Plaquenil ordered. Requesting eye exam for Plaquenil surveillance. 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 Improving on today's labs. AST is mildly elevated at 33 with normal less than 31. Code(s): R74.01 - Elevation of levels of liver transaminase levels Category: Medical Plan: I will monitor with repeating labs next visit (4) Hand weakness: Comment: No change after OT Code(s): R29.898 - Other symptoms and signs involving the musculoskeletal system Category: Medical Plan: Continue exercises learned from OT daily Return to clinic in 3 months (5) Fibromyalgia syndrome: Comment: Uncontrolled on current dose of gabapentin. To help control her pain I will increase her gabapentin dose. I recommended that she follow up with PCP for further medication management of fibromyalgia. Code(s): M79.7 - Fibromyalgia Category: Medical Plan: Increase gabapentin to 900 mg t.i.d. Follow-up with PCP 07/13/2025. Up titrate gabapentin to better control pain from fibromyalgia. Consider adjunct therapy with neuropsychiatric medications that are indicated for fibromyalgia management (6) Bilateral primary osteoarthritis of knee: Code(s): M17.0 - Bilateral primary osteoarthritis of knee Category: Medical Plan: PT was ordered last visit. She is currently in PT for neck pain. Physical therapist will start PT for knee strengthening after PT for neck pain has been completed. Due to elevated liver enzymes, avoid Tylenol She is currently using diclofenac gel, which has been shown to cause transaminitis post marketing data. I have asked her to discontinue diclofenac gel Return to clinic in 3 months Orders: Orders Alanine Aminotransferase Today Z79.899 - Other prison (current) drug therapy C Reactive Protein Today Z79.899 - Other watermelon inspector (current) drug therapy Complete Blood Count Man Dif Today Z79.899 - Other watermelon inspector (current) drug therapy Aspartate Amino Transferase Today Z79.899 - Other prison (current) drug therapy Creatinine Today Z79.899 - Other prison (current) drug therapy Erythrocyte Sedimentation Rate Today Z79.899 - Other prison (current) drug therapy Medications: New gabapentin 900 mg (3 x 300 mg) PO TID 810 caps 1RF 90 days Refilled Plaquenil (hydroxychloroquine) Dispense brand only and 90 day supply 400 mg (2 x 200 mg) PO DAILY 180 tabs 3RF NS Discontinued hydroxychloroquine Dispense brand only Discontinued Reason: Doctor's Order 200 mg PO DAILY 30 tabs 1RF NS gabapentin Dispense 90 day supply Discontinued Reason: Doctor's Order 800 mg PO TID 90 days 270 tabs 3RF Coding Level of Care Code Est Pt Level 4 (17628) Complex EM visit Add On G2211 Diagnoses Sjogren's syndrome with keratoconjunctivitis sicca M35.01 Sjogren organ or system involvement: keratoconjunctivitis Other prison (current) drug therapy Z79.89 Transaminitis R74.01 Hand weakness R29.898 Fibromyalgia syndrome M79.7 Bilateral primary osteoarthritis of knee M17.0
--- OUTSIDE RECORDS SUMMARY | 2025-05-31 13:47 | XMS_ITS | Clinical Summary ---
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 Name Role Phone Unavailable Primary Care Provider Unavailabl e Social History Tobacco Use Types Packs/Day Years Used Date Smoking Tobacco: Never Assessed Comments Unknown Sex and Gender Information Value Date Recorded Sex Assigned at Not on file Legal Sex Female 3:00 AM EST Gender Identity Not on file Sexual Orientation Not on file Plan of Treatment Health Maintenance Due Date Last Done Comments Breast Cancer Screening 1965 DTaP,Tdap,and Td Vaccines (1 - Tdap) 1983 Cervical Cancer Screening: P ap Smear 1985 Pneumococcal Vaccine: 50+ Ye ars (1 of 1 - PCV) 2014 Zoster Vaccines (1 of 2) 2014 Colorectal Cancer Screening: Colonoscopy 11/01/2022 Depression Screening 11/01/2022 HIV Screening 11/01/2022 Hepatitis C Screening 11/01/2022 Social Influencers of Health Screening 11/01/2022 COVID-19 Vaccine ( - 2023-2 5 season) 2024 Influenza Vaccine (Season Ended) 2025 RSV Immunization Adult Patie nts (1 - 1-dose 75+ series) 2039 HIB [...] patient's age to complete this topic Meningococcal B Vaccine Aged Out No l onger eligible based on patient's age to complete [...]
[2025-05-31 13:50] VITALS: BP 100/70; PULSE 67; O2SAT 98; BMI 33.4
== END 2025-05-31 14:23 | disposition home or self-care (01) ==
LOC: HO.RHES 13:40
PROVIDERS: PCP Nurse Practitioner Family; Visit Provider Internal Medicine Rheumatology
DX: M35.01 Sjogren syndrome with keratoconjunctivitis (principal); Z79.899 Other long term (current) drug therapy; R74.01 Elevation of levels of liver transaminase levels; R29.898 Other symptoms and signs involving the musculoskeletal system; M79.7 Fibromyalgia; M17.0 Bilateral primary osteoarthritis of knee
CPT/HCPCS: 99214; G2211

== ENCOUNTER 2025-05-31 13:40 | Outpatient (REF) | payer OTHER, SELFPAY ==
[2025-05-31 17:48] LABS: Baso%MD 0.5 %; Eos%MD 2.9 %; Hematocrit 38.3 % (37.0-47.0); Hemoglobin 12.2 g/dl (12.0-16.0); IG%MD 0.5 %; Lymph%MD 31.8 %; Mean Corpuscular HGB Conc 31.9 g/dl (31.0-35.0); Mean Corpuscular Hemoglobin 26.1 pg (27.0-33.0); Mean Corpuscular Volume 82.0 fL (80.0-98.0); Mono%MD 6.2 %; NRBC Abs Auto 0.000 X10*3/uL (0.0-0.012); NRBC Pct Auto 0.0 /100WBC (0.0-0.2); Neut%MD 58.1 %; Platelet Count 304 X10*3/uL (160-400); Red Blood Count 4.67 X10*6/uL (4.20-5.50); White Blood Count 8.4 X10*3/uL (4.8-10.8)
[2025-05-31 17:56] LABS: Alanine Aminotransferase 24 U/L (0-31); Aspartate Amino Transferase 33 U/L (5-31); Estimated Glomerular Filt Rate > 60
[2025-05-31 21:22] LABS: Band Neutrophils Percent 1 % (3-5); Lymphocytes Absolute Manual 2.8 X10*3/uL (1.2-4.9); Lymphocytes Percent Manual 33 % (20-40); Monocytes Absolute Manual 0.6 X10*3/uL (0.1-1.2); Monocytes Percent Manual 7 % (2-11); Neutrophils Absolute Manual 5.0 X10*3/uL (2.0-8.3); Neutrophils Percent Manual 59 % (45-73)
[2025-05-31 21:23] LABS: RBC Morphology NORMAL
== END 2025-05-31 13:41 | disposition home or self-care (01) ==
LOC: HO.HKASLDS 13:40
PROVIDERS: PCP Nurse Practitioner Family; Visit Provider Internal Medicine Rheumatology
DX: M35.01 Sjogren syndrome with keratoconjunctivitis (principal); M79.7 Fibromyalgia; M17.0 Bilateral primary osteoarthritis of knee; R74.01 Elevation of levels of liver transaminase levels; R29.898 Other symptoms and signs involving the musculoskeletal system; Z79.899 Other long term (current) drug therapy
CPT/HCPCS: 36415; 82565; 84450; 84460; 85007; 85027; 85652; 86140; 99212

== ENCOUNTER 2025-09-04 13:40 | Outpatient (AMB) | payer OTHER, SELFPAY ==
--- NOTE | 2025-09-04 13:41 | MHC.OFFVIS ---
Vital Signs 09/04/25 13:42 Height 5 ft 1 in Weight 170 lb 3.15 oz BMI 32.2 BP 100/70 Blood Pressure Location Lt brachial Position Sitting Pulse 82 Pulse Source Pulse Oximeter Pulse Oximetry (%) 96 Oxygen Delivery Method Room Air Intake Visit Reasons: 3 Months Intake Note: Patient presents for follow up on Sjogren's syndrome. Removable Prosthodontist Name: guille Accompanied by: Self / Same As Patient Allergies morphine Adverse Reaction (Mild, Verified 09/04/25 13:49) Hypotension HPI HPI 3 Months: Details: [place]olan-speaking patient. Video educational sign language interpreter used. She feels improved pain with being on higher dose of gabapentin and Plaquenil. She gets sleepy with gabapentin but it is tolerable. Physical Exam Vital Signs: Last Vital Signs Pulse 82 09/04/25 13:42 BP 100/70 09/04/25 13:42 Pulse Ox 96 09/04/25 13:42 Oxygen Delivery Method Room Air 09/04/25 13:42 BMI result Body Mass Index 32.2 Const Other: General: Comfortable CVS: RRR Respiratory: clear to auscultation bilaterally. Good respiratory effort Skin: No lesions seen MSK: Tender to palpate MCPs, PIPs, wrists, elbows, shoulders. 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 Shoulder abduction 160 degrees with good internal and external rotation. Knee flexion is 90 degrees bilateral. Limited external rotation of bilateral hips. No synovitis present. Diffuse allodynia of all extremities present. Assessment & Plan Assessment & Plan (1) Sjogren syndrome: Comment: Sjogren syndrome associated inflammatory arthritis has improved on Plaquenil 400mg daily. Patient reports she is taking Plaquenil 400 mg daily but her last prescription was for 200 mg daily. Rheumatology history: Biopsy-proven Sjogren's syndrome (minor salivary gland biopsy 01/2018) with inflammatory arthritis, elevated inflammatory markers, seronegative (MAUREEN, SSA/SSB, rheumatoid factor). Dry mouth improves with Biotene. Hydroxychloroquine started for inflammatory arthritis but it was discontinued after a few days due to worsening depression anxiety. She has tolerated Plaquenil 200 mg daily and 400mg daily (increased 05/2025). Code(s): M35.00 - Sjogren syndrome, unspecified Category: Medical Qualifiers: Sjogren organ or system involvement: keratoconjunctivitis Qualified Code(s): M35.01 - Sjogren syndrome with keratoconjunctivitis Plan: I will contact pharmacy to find out the correct dose of Plaquenil patient was taking. If she was taking Plaquenil 200 mg daily, there is room to increase to 400 mg daily to better control her joint pain. Labs for disease monitoring on Plaquenil ordered. Requesting eye exam for Plaquenil surveillance that she had last year x2 request. 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 Improving on last set of labs. AST is mildly elevated at 33 with normal less than 31. Code(s): R74.01 - Elevation of levels of liver transaminase levels Category: Medical Plan: I will monitor with repeating labs this visit (4) Fibromyalgia syndrome: Comment: Better controlled with increasing gabapentin. She continues to have diffuse allodynia on exam. Code(s): M79.7 - Fibromyalgia Category: Medical Plan: Continue gabapentin to 900 mg t.i.d. defer future prescriptions of gabapentin to PCP. Consider adjunct therapy with neuropsychiatric medications that are indicated for fibromyalgia management to better control fibromyalgia. (5) Bilateral primary osteoarthritis of knee: Code(s): M17.0 - Bilateral primary osteoarthritis of knee Category: Medical Plan: PT was ordered last visit. She is currently in PT for neck pain. Physical therapist will start PT for knee strengthening after PT for neck pain has been completed. Due to elevated liver enzymes, avoid Tylenol Return to clinic in 3 months Orders: Orders C Reactive Protein 09/04/25 M35.00 - Sjogren syndrome, unspecified Erythrocyte Sedimentation Rate 09/04/25 M35.00 - Sjogren syndrome, unspecified Protein Electrophoresis, Serum 09/04/25 M35.00 - Sjogren syndrome, unspecified Creatinine 09/04/25 M35.00 - Sjogren syndrome, unspecified Complement C3 09/04/25 M35.00 - Sjogren syndrome, unspecified Complete Blood Count Auto Diff 09/04/25 M35.00 - Sjogren syndrome, unspecified Complement C4 09/04/25 M35.00 - Sjogren syndrome, unspecified Alanine Aminotransferase 09/04/25 M35.00 - Sjogren syndrome, unspecified Rheumatoid Factor 09/04/25 M35.00 - Sjogren syndrome, unspecified Aspartate Amino Transferase 09/04/25 M35.00 - Sjogren syndrome, unspecified Medications: Changed From Plaquenil (hydroxychloroquine) Dispense brand only. 200 mg PO DAILY 90 tabs 0RF NS To Plaquenil (hydroxychloroquine) Dispense brand only. 400 mg (2 x 200 mg) PO DAILY 90 tabs 1RF NS Refilled gabapentin 900 mg (3 x 300 mg) PO TID 810 caps 1RF 90 days Plaquenil (hydroxychloroquine) Dispense brand only. 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
[2025-09-04 13:42] VITALS: BP 100/70; PULSE 82; O2SAT 96; BMI 32.2
--- OUTSIDE RECORDS SUMMARY | 2025-09-04 16:52 | XMS_ITS | Clinical Summary ---
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
== END 2025-09-04 14:15 | disposition home or self-care (01) ==
LOC: HO.RHES 13:41
PROVIDERS: PCP Nurse Practitioner Family; Visit Provider Internal Medicine Rheumatology
DX: M35.01 Sjogren syndrome with keratoconjunctivitis (principal); Z79.899 Other long term (current) drug therapy; R74.01 Elevation of levels of liver transaminase levels; M79.7 Fibromyalgia; M17.0 Bilateral primary osteoarthritis of knee
CPT/HCPCS: 99214; G2211

== ENCOUNTER 2025-09-04 13:40 | Outpatient (REF) | payer OTHER, SELFPAY ==
[2025-09-04 17:58] LABS: MANUAL DIFF FLAG NO
[2025-09-04 18:21] LABS: Hematocrit 41.2 % (37.0-47.0); Hemoglobin 12.7 g/dl (12.0-16.0); Imm Gran Abs Auto 0.04 X10*3/uL (0.00-0.03); Imm Gran Pct Auto 0.5 % (0.0-0.4); Lymphocytes Absolute Auto 3.0 X10*3/uL (1.2-4.9); Mean Corpuscular HGB Conc 30.8 g/dl (31.0-35.0); Mean Corpuscular Hemoglobin 25.7 pg (27.0-33.0); Mean Corpuscular Volume 83.2 fL (80.0-98.0); NRBC Abs Auto 0.000 X10*3/uL (0.0-0.012); NRBC Pct Auto 0.0 /100WBC (0.0-0.2); Platelet Count 310 X10*3/uL (160-400); Red Blood Count 4.95 X10*6/uL (4.20-5.50); White Blood Count 8.4 X10*3/uL (4.8-10.8)
[2025-09-04 18:37] LABS: Alanine Aminotransferase 27 U/L (0-31); Aspartate Amino Transferase 32 U/L (5-31); Estimated Glomerular Filt Rate > 60
[2025-09-05 22:23] LABS: Prot Elec - Albumin 3.7 g/dL (3.8-4.8); Prot Elec - Alpha1 0.3 g/dL (0.2-0.3); Prot Elec - Alpha2 0.8 g/dL (0.5-0.9); Prot Elec - Beta 1 0.5 g/dL (0.4-0.6); Prot Elec - Beta 2 0.4 g/dL (0.2-0.5); Prot Elec - Gamma 0.9 g/dL (0.8-1.7); Prot Elec - Total Protein 6.6 g/dL (6.1-8.1)
== END 2025-09-04 13:41 | disposition home or self-care (01) ==
LOC: HO.HKASLDS 13:40
PROVIDERS: PCP Nurse Practitioner Family; Visit Provider Internal Medicine Rheumatology
DX: M35.01 Sjogren syndrome with keratoconjunctivitis (principal); R74.01 Elevation of levels of liver transaminase levels; M79.7 Fibromyalgia; M17.0 Bilateral primary osteoarthritis of knee; Z79.899 Other long term (current) drug therapy
CPT/HCPCS: 36415; 82565; 84165; 84450; 84460; 85025; 85652; 86140; 86160; 86431; 99212